=== PATIENT | male | born 2000 | race Caucasian/White ===

== ENCOUNTER 2023-12-04 12:04 | Emergency (ER) | payer SELFPAY ==
[2023-12-04 12:13] VITALS: BP 142/79; PULSE 64; TEMP 36.8; O2SAT 98; BMI 22.4
[2023-12-04] MEDS: BACITRACIN 0.9 GM PACKET 1 PACKET TOPICAL (12:33)
--- NOTE | 2023-12-04 13:22 | ED.GENADUL1 ---
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 The patient last tetanus booster was within the last 5 years Related Data Previous Rx's ?Medication ?Instructions ?Recorded cephalexin 500 mg capsule 500 mg PO Q8H 7 days #21 caps 12/04/23 Allergies Allergy/AdvReac Type Severity Reaction Status Date / Time No Known Drug Allergies Allergy Verified 12/04/23 12:13 Opioid HPI Opioid Management Most Recent Opioid Data: No Data to Display Review of Systems ROS Status of ROS 10 or more systems reviewed and unremarkable except as noted in history and below Exam Narrative Exam Narrative: Nurses notes and vital signs reviewed and patient is not hypoxic. Left hand: The patient have a laceration to the lateral aspect of the index finger not exposing any underlying structures only through the skin, the laceration is really the healing nonbleeding General: Well-appearing and in no apparent distress. Skin: Warm, dry, no pallor noted. No rash. Head: Normocephalic, atraumatic. Neck: Supple, non-tender. Eye: Pupils are equal, round and EOMI. No scleral icterus. Ears, Nose, Mouth, and Throat: TM are clear, no nasal mucosal hypertrophy. Oral mucosa is moist, no posterior oropharynx erythema, uvula is mid-line Cardiovascular: Regular Rate and Rhythm without murmur, gallop or rub. Respiratory: No accessory muscle use or respiratory distress. Lungs are clear to auscultation, no wheezing, rales or rhonchi Chest Wall: no tenderness Back: No midline thoracic or lumbar vertebral tenderness. No CVA tenderness Musculoskeletal: normal ROM, no calf or popliteal tenderness, no lower extremity edema/swelling GI: Abdomen is soft, non-distended. Normal bowel sounds. No masses appreciated. No tenderness to palpation. No rebound, guarding, or rigidity noted. Neurological: A&O x4. No cranial nerve dysfunction observed. No truncal ataxia. Moves all extremities. Sensation intact. Psychiatric: Cooperative and interactive. Normal mood and affect. Constitutional Vital Signs, click to edit/add: Last Vital Signs Temp 98.2 F 12/04/23 12:13 Pulse 64 12/04/23 12:13 Resp 18 12/04/23 12:13 BP 142/79 H 12/04/23 12:13 Pulse Ox 98 12/04/23 12:13 O2 Del Method Room Air 12/04/23 12:13 Course Vital Signs Vital signs: Vital Signs Temperature 98.2 F 12/04/23 12:13 Pulse Rate 64 12/04/23 12:13 Respiratory Rate 18 12/04/23 12:13 Blood Pressure 142/79 H 12/04/23 12:13 Pulse Oximetry 98 12/04/23 12:13 Oxygen Delivery Method Room Air 12/04/23 12:13 Temperature 98.2 F 12/04/23 12:13 Pulse Rate 64 12/04/23 12:13 Respiratory Rate 18 12/04/23 12:13 Blood Pressure 142/79 H 12/04/23 12:13 Pulse Oximetry 98 12/04/23 12:13 Oxygen Delivery Method Room Air 12/04/23 12:13 Medical Decision Making [facility] Narrative Medical decision making narrative: Now the patient wound is healing and it is not deep to to uncover any tendon and the patient have full range of movement He was instructed about keeping the wound clean and he will provided Keflex as prophylaxis care The patient is to follow up with primary care physician in next 2-3 days or to return to the emergency department should any of the signs or symptoms worsen or new symptoms develop. The patient agrees with the following Diagnosis and Treatment plan and the patient will be discharged home. Discharge Plan Discharge Stand Alone Forms: Work/School Release, Portal Instructions Chief Complaint: Wound/Laceration Clinical Impression: Laceration Patient Disposition: Home, Self-Care Time of Disposition Decision: 12:25 Condition: Good Prescriptions / Home Meds: New cephalexin 500 mg capsule 500 mg PO Q8H 7 Days Qty: 21 0RF Print Language: [place] Island[place] Instructions: Acute Wounds (DC) Referrals: TOI MACHADO [Primary Care Provider] - 1 week Discharge Date/Time: 12/04/23 12:37
== END 2023-12-04 12:37 | disposition home or self-care (01) ==
PROVIDERS: Emergency Provider Emergency Medicine; PCP Family Medicine
DX: S61.211A Laceration without foreign body of left index finger without damage to nail, initial encounter (principal); W26.8XXA Contact with other sharp object(s), not elsewhere classified, initial encounter
CPT/HCPCS: 99283

== ENCOUNTER 2023-12-28 17:19 | Emergency (ER) | payer SELFPAY ==
[2023-12-28 17:22] VITALS: BP 137/80; PULSE 62; TEMP 36.9; O2SAT 99; BMI 24.2
--- OUTSIDE RECORDS SUMMARY | 2023-12-28 17:27 | XMS_ITS | CCD ---
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 Name Role Phone DR TOI MACHADO Primary Care Unavailable PRANEETH DAVIS Admitting Unavailable PRANEETH DAVIS Attending Unavailable PRANEETH DAVIS Consulting Unavailable [place], [facility] Janell E Emergency Provider NO FAMILY, PHYSICIAN Primary Care Provider Unava ilable Saffle, [employer] Tati N Emergency Provider [place], [facility] Janell E Emergency Provider NO FAMILY, PHYSICIAN Primary Care Provider Unava ilable Saffle, [employer] Tati N Emergency Provider DO Howie Rodriguez Emergency Provider Unavai lable [place], Janell E Admitting Unavailable [place], Janell E Attending Unavailable NO FAMILY, PHYSICIAN Primary Care Unavailable Saffle, Tati N Admitting Unavailable Saffle, Tati N Attending Unavailable NO FAMILY, PHYSICIAN Primary Care Unavailable Howie Rodriguez Admitting Unavailable Howie Rodriguez Attending Unavailable NO FAMILY, PHYSICIAN Primary Care Unavailable NO FAMILY, PHYSICIAN Primary Care Unavailable Howie Rodriguez Admitting Unavailable Howie Rodriguez Attending Unavailable Subhash Mojica Attending Unavailable Subhash Mojica Admitting Unavailable NO FAMILY, PHYSICIAN Primary Care Unavailable Medications Current Medications Medication Drug Class(es) Dates Sig (Normalized) Sig (Original) ondansetron 4 mg oral tablet (1 source) Serotonin-3 Receptor Antagonist Start: 07-08-2022 take 4 mg by mouth every eight hours Ondansetron Hcl Active 4 MG PO Q8H 12 July 08, 2022 12:00am sucralfate 1000 mg oral tablet (1 source) Aluminum Complex Start: 07-08-2022 take 1 tablet by mouth twice daily Sucralfate (Carafate) 1 gram tablet Active 1 GM PO Twice daily 14 July 08, 2022 9:27am Problems Problem Classification Problem Date Documented Da te Episodic/Chronic Abdominal pain (2 sources) Abdominal pain; Translations: [Unspecified abdominal pain] Onset: 08-23-2022 07-08-2022 Episodic Fluid and electrolyte disorders (1 source) Dehydration; Translations: [DEHYDRATION] Onset: 06-21-2021 Episodic Nausea and vomiting (6 sources) Nausea with vomiting, unspecified; Translations: [Nausea and vomiting] Onset: 06-17-2021 Episodic Open wounds of head; neck; and trunk (3 sources) Scalp laceration; Translations: [Laceration without foreign body of scalp, initial encounter] 04-20-2022 Episodic Other aftercare (2 sources) Surgical follow-up; Translations: [Encounter for removal of sutures] 05-05-2022 Episodic Other gastrointestinal disorders (1 source) Diarrhea, unspecified; Translations: [DIARRHEA UNSPECIFIED] Onset: 06-21-2021 Episodic Other injuries and conditions due to external causes (3 sources) Closed injury of head; Translations: [Unspecified injury of head, initial encounter] 04-20-2022 Episodic Unclassified (1 source) Laceration without foreign body of scalp, subsequent encounter; Translations: [Laceration without foreign body of scalp, subsequent encounter] Onset: 05-05-2022 Unclassified (1 source) Laceration without foreign body of scalp, initial encounter; Translations: [Laceration without foreign body of scalp, initial encounter] Onset: 04-20-2022 Results Test Name Value Interpretation Reference Range Facility CT abdomen pelvis wo [facility] 0 08-25-2022 CT abdomen pelvis [facility] [place] [address] CT Scan Report Signed Patient: Marilyn Reddy MR#: [id number] 7 : 2000 Acct:[id number] Age/Sex: 22 / M ADM Date: 08/25/22 Loc: ER Room: Type: [facility] ER Attending Dr: Copies to: Subhash Mojiac MD Ordering Provider: Subhash Mojica MD Date of Service: 08/25/22 CT/CT abdomen pelvis wo con: abdominal pain CT abdomen pelvis wo con 08/25/2022 9:09 AM SIGNS AND SYMPTOMS: Abdominal pain and cramping TECHNIQUE: Multidetector ct axial images of the abdomen and pelvis were obtained without IV contrast. Multiplanar reformats were performed and reviewed to further define anatomy and possible pathology. CT was performed with one or more of the following dose reduction techniques: Automated exposure control, adjustment of the mA and/or kV according to patient size, or use of iterative reconstruction technique. COMPARISON: None. FINDINGS: Lower Chest: Within normal limits. ABDOMEN: Liver: Within normal limits. Bile Ducts: Normal caliber. Gallbladder: No calcified gallstones. Normal caliber wall. Pancreas: Within normal limits. Spleen: Within normal limits. Adrenals: Within normal limits. Kidneys: Within normal limits. Pelvis: Reproductive Organs: No pelvic masses. Ureters: Within normal limits. Bladder: Within normal limits. Bowel: Normal caliber. There is a normal appendix in the right lower quadrant. Mesenteric Lymph Nodes: No enlarged mesenteric lymph nodes. Peritoneum: No ascites or free air, no fluid collection. Vessels: within normal limits Retroperitoneum: Within normal limits. Abdominal Wall: Within normal limits. Bones: Within normal limits. CT/CT abdomen pelvis wo con IMPRESSION: No acute intra-abdominal pathology. No bowel obstruction or or obstructive uropathy. No free fluid or free air. Impression dictated by: Piyush Hopper M.D.08/25/2022 10:10 AM Dictation Location: [place] [address] Transcribed By: [facility] 08/25/22 1010 Dictated By: Piyush Hopper II, MD 08/25/22 1004 Signed By: 08/25/22 1010 Normal [facility] Complete Blood Count Auto Di ffon 08-25-2022 Basophils (Bld) [#/Vol] 0.0 10*3/uL Normal 0.0-0.2 [facility] Comment on above: Result Comment: PERF ORMED BY: [address] [place] [address] PATHOLOGIST GUEST SERVICES DIRECTOR MARYANN CORTEZ M.D. Performed By: #### L IPASE, CMP, CBC #### [address] [place] [address] [place] Basophils/100 WBC (Bld) 0.4 % Normal . F [facility] Comment on above: Performed By: #### L IPASE, CMP, CBC #### [facility] [address] Eosinophils (Bld) [#/Vol] 0.0 10*3/uL Normal 0.0-0.45 [facility] Comment on above: Performed By: #### L IPASE, CMP, CBC #### [facility] [address] [place] [address] [place] Eosinophils/100 WBC (Bld) 0.4 % Normal . [facility] Comment on above: Performed By: #### L IPASE, CMP, CBC #### [address] Erythrocyte distribution width (RBC) [Ratio] 13.5 % Normal 12.0-14.8 [facility] Comment on above: Performed By: #### L IPASE, CMP, CBC #### [address] Hematocrit (Bld) [Volume fraction] 42.7 % Normal 38.8-50.0 [facility] Comment on above: Performed By: #### L IPASE, CMP, CBC #### [place] [id number] [place] Hemoglobin (Bld) [Mass/Vol] 15.0 g/dL Normal 13.0-17.0 [facility] Comment on above: Performed By: #### L IPASE, CMP, CBC #### [place] [id number] [place] Lymphocytes (Bld) [#/Vol] 0.9 10*3/uL Low 1.00-4.8 [facility] Comment on above: Performed By: #### L IPASE, CMP, CBC #### [place] [id number] [place] Lymphocytes/100 WBC (Bld) 12.4 % Normal . [facility] Comment on above: Performed By: #### L IPASE, CMP, CBC #### [facility] [address] MCH (RBC) [Entitic mass] 29.7 pg Normal 27.5-35.2 [facility] Comment on above: Performed By: #### L IPASE, CMP, CBC #### [facility] [address] MCV (RBC) [Entitic vol] 84.3 fL Normal 83.5-101 F [facility] Comment on above: Performed By: #### L IPASE, CMP, CBC #### [address] Mean Corpuscular HGB Conc 35.2 g/dL Normal 32.5-35.6 [facility] Comment on above: Performed By: #### L IPASE, CMP, CBC #### [address] Monocytes (Bld) [#/Vol] 0.4 10*3/uL Normal 0.0-0.8 [facility] Comment on above: Performed By: #### L IPASE, CMP, CBC #### [place] [id number] [place] Monocytes/100 WBC (Bld) 16.20 % Normal 0.00-20.00 [facility] Comment on above: Performed By: #### L IPASE, CMP, CBC #### [place] [id number] [place] Monocytes/100 WBC (Bld) 4.7 % Normal . [facility] Comment on above: Performed By: #### L IPASE, CMP, CBC #### [facility] [address] [place] [address] [place] Neutrophils (Bld) [#/Vol] 6.2 10*3/uL Normal 1.8-7.7 [facility] Comment on above: Performed By: #### L IPASE, CMP, CBC #### [facility] [address] [place] [address] [place] Neutrophils/100 WBC (Bld) 82.1 % Normal . [facility] Comment on above: Performed By: #### L IPASE, CMP, CBC #### [address] NRBC% 0.1 /100{WBC} Normal 0-0.5 [facility] Comment on above: Performed By: #### L IPASE, CMP, CBC #### [address] Platelet mean volume (Bld) [Entitic vol] 8.0 fL Normal 6.6-10.1 [facility] Comment on above: Performed By: #### L IPASE, CMP, CBC #### [address] Platelets (Bld) [#/Vol] 232 10*3/uL Normal 150-450 [facility] Comment on above: Performed By: #### L IPASE, CMP, CBC #### [address] RBC (Bld) [#/Vol] 5.06 10*6/uL Normal 3.90-5.60 [facility] Comment on above: Performed By: #### L IPASE, CMP, CBC #### [address] WBC (Bld) [#/Vol] 7.5 10*3/uL Normal 4.1-10.5 [facility] Comment on above: Performed By: #### L IPASE, CMP, CBC #### [address] Comprehensive Metabolic Pane prem 08-25-2022 Albumin [Mass/Vol] 4.4 g/dL Normal 3.5-5.7 [facility] Comment on above: Performed By: #### L IPASE, CMP, CBC #### [address] Albumin/Globulin [Mass ratio] 1.5 {ratio} Normal [facility] Comment on above: Performed By: #### L IPASE, CMP, CBC #### [address] [place] [address] [place] ALP [Catalytic activity/Vol] 76 U/L Normal 34-104 [facility] Comment on above: Performed By: #### L IPASE, CMP, CBC #### [facility] [address] ALT [Catalytic activity/Vol] 17 U/L Normal 7-52 [facility] Comment on above: Performed By: #### L IPASE, CMP, CBC #### [facility] [address] Anion gap [Moles/Vol] 10.1 mmol/L Normal 6.0-15.0 [facility] Comment on above: Performed By: #### L IPASE, CMP, CBC #### [address] AST [Catalytic activity/Vol] 14 U/L Normal 13-39 [facility] Comment on above: Performed By: #### L IPASE, CMP, CBC #### [address] Bilirubin [Mass/Vol] 0.7 mg/dL Normal 0.3-1.0 [facility] Comment on above: Performed By: #### L IPASE, CMP, CBC #### [address] Calcium [Mass/Vol] 9.1 mg/dL Normal 8.6-10.3 [facility] Comment on above: Performed By: #### L IPASE, CMP, CBC #### [place] [id number] [place] Chloride [Moles/Vol] 102 mmol/L Normal 98-107 [facility] Comment on above: Performed By: #### L IPASE, CMP, CBC #### [facility] [address] CO2 [Moles/Vol] 28.1 mmol/L Normal 21.0-31.0 [facility] Comment on above: Performed By: #### L IPASE, CMP, CBC #### [facility] [address] Creatinine [Mass/Vol] 0.95 mg/dL Normal 0.70-1.30 [facility] Comment on above: Performed By: #### L IPANINFA SPANN, CBC #### [facility] [address] [place] [address] [place] Creatinine Clr Calc Pharmacy 129.09 [facility] Comment on above: Performed By: #### L IPASE, CMP, CBC #### [facility] [address] GFR/1.73 sq M.predicted MDRD (S/P/Bld) [Vol rate/Area] mL/min/{1.73_m2} [facility] Comment on above: Performed By: #### L IPASE CMP, CBC #### [facility] [address] Globulin (S) [Mass/Vol] 2.9 g/dL Normal [facility] Comment on above: Performed By: #### L IPASE, CMP, CBC #### [facility] [address] Glucose [Mass/Vol] 104 mg/dL High 70-100 [facility] Comment on above: Result Comment: [facility] Glucose Reference Range is dependent on time and content of last meal. Glucose of more than 200 mg/dL in a nonstressed, ambulatory subject supports the diagnosis of Diabetes Mellitus. ADA recommended reference range Performed By: #### L IPASE, CMP, CBC #### [facility] [address] Potassium [Moles/Vol] 4.2 mmol/L Normal 3.5-5.1 [facility] Comment on above: Performed By: #### L IPASE, CMP, CBC #### [facility] [address] Protein [Mass/Vol] 7.3 g/dL Normal 6.4-8.9 [facility] Comment on above: Performed By: #### L IPASE, CMP, CBC #### [facility] [address] [place] [address] Sodium [Moles/Vol] 136 mmol/L Normal 136-145 [facility] Comment on above: Performed By: #### L IPASE, CMP, CBC #### [address] Urea nitrogen [Mass/Vol] 21 mg/dL Normal 7-25 [facility] Comment on above: Performed By: #### L IPASE, CMP, CBC #### [address] Dipstick and Microscopicon 0 08-25-2022 Appearance (U) Turbid Critically abnormal Clear [facility] Comment on above: Order Comment: Name Collection Type:: Clean-Voided Midstream Performed By: #### H EPATIC, CBC, BMP, LIPASE #### [address] Bacteria,Urine None Seen Normal None Seen [facility] Comment on above: Order Comment: Name Collection Type:: Clean-Voided Midstream Performed By: #### H EPATIC, CBC, BMP, LIPASE #### [address] Bilirubin,Urine Negative Normal Negative [facility] Comment on above: Order Comment: Name Collection Type:: Clean-Voided Midstream Performed By: #### H EPATIC, CBC, BMP, LIPASE #### [address] Color (U) Yellow Normal Yellow [facility] Comment on above: Order Comment: Name Collection Type:: Clean-Voided Midstream Performed By: #### H EPATIC, CBC, BMP, LIPASE #### [facility] [address] [place] [address] Glucose Ql (U) Normal Normal Normal [facility] Comment on above: Order Comment: Name Collection Type:: Clean-Voided Midstream Performed By: #### H EPATIC, CBC, BMP, LIPASE #### [address] Hyaline Casts,Urine 0-8 Normal 0-8 [facility] Comment on above: Order Comment: Name Collection Type:: Clean-Voided Midstream Result Comment: PERF ORMED BY: [place] [address] PATHOLOGIST GUEST SERVICES DIRECTOR MARYANN CORTEZ M.D. Performed By: #### H EPATIC, CBC, BMP, LIPASE #### [address] Ketones Ql (U) Negative Normal Negative [facility] Comment on above: Order Comment: Name Collection Type:: Clean-Voided Midstream Performed By: #### H EPATIC, CBC, BMP, LIPASE #### [address] Leukocyte esterase Test strip Ql (U) Negative Normal Negative [facility] Comment on above: Order Comment: Name Collection Type:: Clean-Voided Midstream Performed By: #### H EPATIC, CBC, BMP, LIPASE #### [address] Nitrite,Urine Negative Normal Negative [facility] Comment on above: Order Comment: Name Collection Type:: Clean-Voided Midstream Performed By: #### H EPATIC, CBC, BMP, LIPASE #### [address] Occult Blood,Urine Negative Normal Negative [facility] Comment on above: Order Comment: Name Collection Type:: Clean-Voided Midstream Result Comment: PERF ORMED BY: [place] [address] PATHOLOGIST GUEST SERVICES DIRECTOR MARYANN CORTEZ M.D. Performed By: #### H EPATIC, CBC, BMP, LIPASE #### [address] pH (U) 7.0 [pH] Normal 5.0-9.0 [facility] Comment on above: Order Comment: Name Collection Type:: Clean-Voided Midstream Performed By: #### H EPATIC, CBC, BMP, LIPASE #### [address] Protein,Urine Negative Normal Negative [facility] Comment on above: Order Comment: Name Collection Type:: Clean-Voided Midstream Performed By: #### H EPATIC, CBC, BMP, LIPASE #### [address] RBC LM.HPF (Urine sed) [#/Area] 0 /[HPF] Normal 0-4 [facility] Comment on above: Order Comment: Name Collection Type:: Clean-Voided Midstream Performed By: #### H EPATIC, CBC, BMP, LIPASE #### [address] Specificy [place],Urine 1.025 Normal 1.001-1.030 [facility] Comment on above: Order Comment: Name Collection Type:: Clean-Voided Midstream Performed By: #### H EPATIC, CBC, BMP, LIPASE #### [address] Squamous Epithelial Cell,Urine None Seen Normal 0-2 [facility] Comment on above: Order Comment: Name Collection Type:: Clean-Voided Midstream Performed By: #### H EPATIC, CBC, BMP, LIPASE #### [address] Urobilinogen,Urine Normal Normal Normal [facility] Comment on above: Order Comment: Name Collection Type:: Clean-Voided Midstream Performed By: #### H EPATIC, CBC, BMP, LIPASE #### [address] WBC LM.HPF (Urine sed) [#/Area] 0 /[HPF] Normal 0-4 [facility] Comment on above: Order Comment: Name Collection Type:: Clean-Voided Midstream Performed By: #### H EPATIC, CBC, BMP, LIPASE #### [address] Lipaseon 08-25-2022 Lipase [Catalytic activity/Vol] 14.0 U/L Normal 11.0-82.0 [facility] Comment on above: Result Comment: PERF ORMED BY: [address] [place] [address] PATHOLOGIST GUEST SERVICES DIRECTOR MARYANN CORTEZ M.D. Performed By: #### H EPATIC, CBC, BMP, LIPASE #### [address] Basic Metabolic Panelon 05-2 Anion gap [Moles/Vol] 11.2 mmol/L Normal 6.0-15.0 [facility] Comment on above: Performed By: #### H EPATIC, CBC, BMP, LIPASE #### [address] Calcium [Mass/Vol] 8.7 mg/dL Normal 8.6-10.3 [facility] Comment on above: Performed By: #### H EPATIC, CBC, BMP, LIPASE #### [address] Chloride [Moles/Vol] 102 mmol/L Normal 98-107 [facility] Comment on above: Performed By: #### H EPATIC, CBC, BMP, LIPASE #### [address] CO2 [Moles/Vol] 25.6 mmol/L Normal 21.0-31.0 [facility] Comment on above: Performed By: #### H EPATIC, CBC, BMP, LIPASE #### [address] Creatinine [Mass/Vol] 0.81 mg/dL Normal 0.70-1.30 [facility] Comment on above: Performed By: #### H EPATIC, CBC, BMP, LIPASE #### [facility] [address] [place] [address] Creatinine Clr Calc Pharmacy 153.85 [facility] Comment on above: Performed By: #### H EPATIC, CBC, BMP, LIPASE #### [place] [id number] [place] GFR/1.73 sq M.predicted MDRD (S/P/Bld) [Vol rate/Area] mL/min/{1.73_m2} [facility] Comment on above: Performed By: #### H EPATIC, CBC, BMP, LIPASE #### [facility] [address] Glucose [Mass/Vol] 99 mg/dL Normal 70-100 [facility] Comment on above: Result Comment: [facility] Glucose Reference Range is dependent on time and content of last meal. Glucose of more than 200 mg/dL in a nonstressed, ambulatory subject supports the diagnosis of Diabetes Mellitus. ADA recommended reference range Performed By: #### H EPATIC, CBC, BMP, LIPASE #### [facility] [address] Potassium [Moles/Vol] 3.8 mmol/L Normal 3.5-5.1 [facility] Comment on above: Performed By: #### H EPATIC, CBC, BMP, LIPASE #### [address] Sodium [Moles/Vol] 135 mmol/L Low 136-145 [facility] Comment on above: Performed By: #### H EPATIC, CBC, BMP, LIPASE #### [address] Urea nitrogen [Mass/Vol] 27 mg/dL High 7-25 [facility] Comment on above: Performed By: #### H EPATIC, CBC, BMP, LIPASE #### [address] Complete Blood Count Auto Di ffon 08-23-2022 Basophils (Bld) [#/Vol] 0.1 10*3/uL Normal 0.0-0.2 [facility] Comment on above: Result Comment: PERF ORMED BY: [place] [address] PATHOLOGIST GUEST SERVICES DIRECTOR MARYANN CORTEZ M.D. Performed By: #### H EPATIC, CBC, BMP, LIPASE #### [address] Basophils/100 WBC (Bld) 0.7 % Normal . F [facility] Comment on above: Performed By: #### H EPATIC, CBC, BMP, LIPASE #### [address] Eosinophils (Bld) [#/Vol] 0.1 10*3/uL Normal 0.0-0.45 [facility] Comment on above: Performed By: #### H EPATIC, CBC, BMP, LIPASE #### [address] Eosinophils/100 WBC (Bld) 1.4 % Normal . [facility] Comment on above: Performed By: #### H EPATIC, CBC, BMP, LIPASE #### [address] Erythrocyte distribution width (RBC) [Ratio] 13.3 % Normal 12.0-14.8 [facility] Comment on above: Performed By: #### H EPATIC, CBC, BMP, LIPASE #### [address] Hematocrit (Bld) [Volume fraction] 42.6 % Normal 38.8-50.0 [facility] Comment on above: Performed By: #### H EPATIC, CBC, BMP, LIPASE #### [address] Hemoglobin (Bld) [Mass/Vol] 14.9 g/dL Normal 13.0-17.0 [facility] Comment on above: Performed By: #### H EPATIC, CBC, BMP, LIPASE #### [address] Lymphocytes (Bld) [#/Vol] 2.1 10*3/uL Normal 1.00-4.8 [facility] Comment on above: Performed By: #### H EPATIC, CBC, BMP, LIPASE #### [address] Lymphocytes/100 WBC (Bld) 26.5 % Normal . [facility] Comment on above: Performed By: #### H EPATIC, CBC, BMP, LIPASE #### [address] MCH (RBC) [Entitic mass] 29.6 pg Normal 27.5-35.2 [facility] Comment on above: Performed By: #### H EPATIC, CBC, BMP, LIPASE #### [address] MCV (RBC) [Entitic vol] 84.5 fL Normal 83.5-101 F [facility] Comment on above: Performed By: #### H EPATIC, CBC, BMP, LIPASE #### [address] Mean Corpuscular HGB Conc 35.1 g/dL Normal 32.5-35.6 [facility] Comment on above: Performed By: #### H EPATIC, CBC, BMP, LIPASE #### [address] Monocytes (Bld) [#/Vol] 0.7 10*3/uL Normal 0.0-0.8 [facility] Comment on above: Performed By: #### H EPATIC, CBC, BMP, LIPASE #### [address] Monocytes/100 WBC (Bld) 16.32 % Normal 0.00-20.00 [facility] Comment on above: Performed By: #### H EPATIC, CBC, BMP, LIPASE #### [address] Monocytes/100 WBC (Bld) 8.5 % Normal . [facility] Comment on above: Performed By: #### H EPATIC, CBC, BMP, LIPASE #### [address] Neutrophils (Bld) [#/Vol] 5.1 10*3/uL Normal 1.8-7.7 [facility] Comment on above: Performed By: #### H EPATIC, CBC, BMP, LIPASE #### [address] Neutrophils/100 WBC (Bld) 62.9 % Normal . [facility] Comment on above: Performed By: #### H EPATIC, CBC, BMP, LIPASE #### [address] NRBC% 0.2 /100{WBC} Normal 0-0.5 [facility] Comment on above: Performed By: #### H EPATIC, CBC, BMP, LIPASE #### [address] Platelet mean volume (Bld) [Entitic vol] 7.9 fL Normal 6.6-10.1 [facility] Comment on above: Performed By: #### H EPATIC, CBC, BMP, LIPASE #### [address] Platelets (Bld) [#/Vol] 235 10*3/uL Normal 150-450 [facility] Comment on above: Performed By: #### H EPATIC, CBC, BMP, LIPASE #### [address] RBC (Bld) [#/Vol] 5.04 10*6/uL Normal 3.90-5.60 [facility] Comment on above: Performed By: #### H EPATIC, CBC, BMP, LIPASE #### [address] WBC (Bld) [#/Vol] 8.1 10*3/uL Normal 4.1-10.5 [facility] Comment on above: Performed By: #### H EPATIC, CBC, BMP, LIPASE #### [address] Dipstick and Microscopicon 0 08-23-2022 Appearance (U) Cloudy Critically abnormal Clear [facility] Comment on above: Order Comment: Name Collection Type:: Clean-Voided Midstream Performed By: #### A DDONUAPLUS #### [address] Bacteria,Urine None Seen Normal None Seen [facility] Comment on above: Order Comment: Name Collection Type:: Clean-Voided Midstream Performed By: #### A DDONUAPLUS #### [facility] [address] [place] [address] [place] Bilirubin,Urine Negative Normal Negative [facility] Comment on above: Order Comment: Name Collection Type:: Clean-Voided Midstream Performed By: #### A DDONUAPLUS #### [facility] [address] [place] [address] Color (U) Yellow Normal Yellow [facility] Comment on above: Order Comment: Name Collection Type:: Clean-Voided Midstream Performed By: #### A DDONUAPLUS #### [facility] [address] [place] [address] [place] Glucose Ql (U) Normal Normal Normal [facility] Comment on above: Order Comment: Name Collection Type:: Clean-Voided Midstream Performed By: #### A DDONUAPLUS #### [facility] [address] [place] [address] [place] Hyaline Casts,Urine None Seen Normal 0-8 [facility] Comment on above: Order Comment: Name Collection Type:: Clean-Voided Midstream Result Comment: PERF ORMED BY: [place] [address] PATHOLOGIST GUEST SERVICES DIRECTOR MARYANN CORTEZ M.D. Performed By: #### A DDONUAPLUS #### [facility] [address] [place] [address] [place] Ketones Ql (U) Negative Normal Negative [facility] Comment on above: Order Comment: Name Collection Type:: Clean-Voided Midstream Performed By: #### A DDONUAPLUS #### [facility] [address] [place] [address] [place] Leukocyte esterase Test strip Ql (U) Negative Normal Negative [facility] Comment on above: Order Comment: Name Collection Type:: Clean-Voided Midstream Performed By: #### A DDONUAPLUS #### [facility] [address] [place] [address] [place] Nitrite,Urine Negative Normal Negative [facility] Comment on above: Order Comment: Name Collection Type:: Clean-Voided Midstream Performed By: #### A DDONUAPLUS #### [address] Occult Blood,Urine Negative Normal Negative [facility] Comment on above: Order Comment: Name Collection Type:: Clean-Voided Midstream Result Comment: PERF ORMED BY: [place] [address] PATHOLOGIST GUEST SERVICES DIRECTOR MARYANN CORTEZ M.D. Performed By: #### A DDONUAPLUS #### [address] pH (U) 7.0 [pH] Normal 5.0-9.0 [facility] Comment on above: Order Comment: Name Collection Type:: Clean-Voided Midstream Performed By: #### A DDONUAPLUS #### [address] Protein,Urine Negative Normal Negative [facility] Comment on above: Order Comment: Name Collection Type:: Clean-Voided Midstream Performed By: #### A DDONUAPLUS #### [address] RBC LM.HPF (Urine sed) [#/Area] 0 /[HPF] Normal 0-4 [facility] Comment on above: Order Comment: Name Collection Type:: Clean-Voided Midstream Performed By: #### A DDONUAPLUS #### [address] Specificy [place],Urine 1.022 Normal 1.001-1.030 [facility] Comment on above: Order Comment: Name Collection Type:: Clean-Voided Midstream Performed By: #### A DDONUAPLUS #### [address] Squamous Epithelial Cell,Urine None Seen Normal 0-2 [facility] Comment on above: Order Comment: Name Collection Type:: Clean-Voided Midstream Performed By: #### A DDONUAPLUS #### [address] Urobilinogen,Urine Normal Normal Normal [facility] Comment on above: Order Comment: Name Collection Type:: Clean-Voided Midstream Performed By: #### A DDONUAPLUS #### [address] WBC LM.HPF (Urine sed) [#/Area] 0 /[HPF] Normal 0-4 [facility] Comment on above: Order Comment: Name Collection Type:: Clean-Voided Midstream Performed By: #### A DDONUAPLUS #### [address] Hepatic Panelon 08-23-2022 Albumin [Mass/Vol] 4.2 g/dL Normal 3.5-5.7 [facility] Comment on above: Performed By: #### H EPATIC, CBC, BMP, LIPASE #### [address] Albumin/Globulin [Mass ratio] 1.4 {ratio} Normal [facility] Comment on above: Performed By: #### H EPATIC, CBC, BMP, LIPASE #### [address] ALP [Catalytic activity/Vol] 84 U/L Normal 34-104 [facility] Comment on above: Performed By: #### H EPATIC, CBC, BMP, LIPASE #### [address] ALT [Catalytic activity/Vol] 18 U/L Normal 7-52 [facility] Comment on above: Performed By: #### H EPATIC, CBC, BMP, LIPASE #### [address] AST [Catalytic activity/Vol] 17 U/L Normal 13-39 [facility] Comment on above: Performed By: #### H EPATIC, CBC, BMP, LIPASE #### [address] Bilirubin [Mass/Vol] 0.7 mg/dL Normal 0.3-1.0 [facility] Comment on above: Performed By: #### H EPATIC, CBC, BMP, LIPASE #### [address] [place] [address] [place] Bilirubin,Indirect 0.6 mg/dL Normal [facility] Comment on above: Performed By: #### H EPATIC, CBC, BMP, LIPASE #### [facility] [address] Bilirubin.indirect [Mass/Vol] 0.10 mg/dL Normal 0.03-0.18 [facility] Comment on above: Performed By: #### H EPATIC, CBC, BMP, LIPASE #### [facility] [address] Globulin (S) [Mass/Vol] 2.9 g/dL Normal [facility] Comment on above: Performed By: #### H EPATIC, CBC, BMP, LIPASE #### [address] Protein [Mass/Vol] 7.1 g/dL Normal 6.4-8.9 [facility] Comment on above: Performed By: #### H EPATIC, CBC, BMP, LIPASE #### [address] Lipaseon 08-23-2022 Lipase [Catalytic activity/Vol] 10.0 U/L Low 11.0-82.0 [facility] Comment on above: Result Comment: PERF ORMED BY: [place] [address] PATHOLOGIST GUEST SERVICES DIRECTOR MARYANN CORTEZ M.D. Performed By: #### H EPATIC, CBC, BMP, LIPASE #### [address] Basic Metabolic Panelon 04-0 Anion gap [Moles/Vol] 9.0 mmol/L Normal 6.0-15.0 [facility] Comment on above: Performed By: #### H EPATIC, CBC, BMP, LIPASE #### [address] Calcium [Mass/Vol] 9.1 mg/dL Normal 8.6-10.3 [facility] Comment on above: Performed By: #### H EPATIC, CBC, BMP, LIPASE #### [facility] [address] [place] [address] [place] Chloride [Moles/Vol] 106 mmol/L Normal 98-107 [facility] Comment on above: Performed By: #### H EPATIC, CBC, BMP, LIPASE #### [facility] [address] CO2 [Moles/Vol] 25.7 mmol/L Normal 21.0-31.0 [facility] Comment on above: Performed By: #### H EPATIC, CBC, BMP, LIPASE #### [facility] [address] Creatinine [Mass/Vol] 0.81 mg/dL Normal 0.70-1.30 [facility] Comment on above: Performed By: #### H EPATIC, CBC, BMP, LIPASE #### [facility] [address] Creatinine Clr Calc Pharmacy 146.09 [facility] Comment on above: Result Comment: PERF ORMED BY: [place] [address] PATHOLOGIST GUEST SERVICES DIRECTOR MARYANN CORTEZ M.D. Performed By: #### H EPATIC, CBC, BMP, LIPASE #### [facility] [address] GFR/1.73 sq M.predicted MDRD (S/P/Bld) [Vol rate/Area] mL/min/{1.73_m2} [facility] Comment on above: Performed By: #### H EPATIC, CBC, BMP, LIPASE #### [facility] [address] Glucose [Mass/Vol] 109 mg/dL High 70-100 [facility] Comment on above: Result Comment: [place] Glucose Reference Range is dependent on time and content of last meal. Glucose of more than 200 mg/dL in a nonstressed, ambulatory subject supports the diagnosis of Diabetes Mellitus. ADA recommended reference range Performed By: #### H EPATIC, CBC, BMP, LIPASE #### [facility] [address] Potassium [Moles/Vol] 3.7 mmol/L Normal 3.5-5.1 [facility] Comment on above: Performed By: #### H EPATIC, CBC, BMP, LIPASE #### [facility] [address] Sodium [Moles/Vol] 137 mmol/L Normal 136-145 [facility] Comment on above: Performed By: #### H EPATIC, CBC, BMP, LIPASE #### [facility] [address] Urea nitrogen [Mass/Vol] 19 mg/dL Normal 7-25 [facility] Comment on above: Performed By: #### H EPATIC, CBC, BMP, LIPASE #### [facility] [address] Basophils Auto (Bld) [#/Vol] Ordered By: Howie Rodriguez on 07-08-2022 Basophils (Bld) [#/Vol] 0.0 10*3/uL 0.0-0.2 [facility] Basophils/100 WBC Auto (Bld) Ordered By: Howie Rodriguez on 07-08-2022 Basophils/100 WBC (Bld) 0.3 % . [facility] COVID-19 Antigenon 3 COVID-19 Antigen Healthcare Worker?: N Reference Range: Negative Negative results, from patients with symptom onset beyond five days, should be treated as presumptive and confirmation with a molecular assay, if necessary, for patient management, may be performed. Negative results do not rule out COVID-19 and should not be used as the sole basis for treatment or patient management decisions, including infection control decisions. Negative results should be considered in the context of a patient's recent exposures, history and the presence of clinical signs and symptoms consistent with COVID-19. The Jessica SARS Antigen KAREN does not differentiate between SARS-CoV and SARS-CoV-2. This test was developed and its performance characteristic determined by [facility] and validated at [facility]. This test has not been FDA cleared or approved. This test has been authorized by FDA under an Emergency Use Authorization (EUA). This test has been validated in accordance with the FDA's Guidance Document (Policy for Diagnostics Testing in Laboratories Certified to Perform High Complexity Testing under CLIA prior to Emergency Use Authorization for Coronavirus Disease-2019 during the Public Health Emergency) issued on July 04, 2019. This test is only authorized for the duration of time the declaration that circumstances exist justifying the authorization of the emergency use of in vitro diagnostic tests for detection of SARS-CoV-2 virus and/or diagnosis of COVID-19 infection under section 564(b)(1) of the Act, 21 U.S.C. 360bbb-3(b)(1), unless the authorization is terminated or revoked sooner. SARS-CoV+SARS-CoV-2 (COVID-19) Ag [Presence] in Respiratory specimen by Rapid immunoassay Negative for SARS Antigen by KAREN PERFORMED BY: [place] [address] PATHOLOGIST GUEST SERVICES DIRECTOR MARYANN CORTEZ M.D. [facility] Comment on above: Performed By: #### S OFIANEG, COVID-19 JESSICA #### [address] COVID-19 SOFIAOrdered By: Bolivar Rodriguez on 07-08-2022 SARS-CoV+SARS-CoV-2 (COVID-19) Ag IA.rapid Ql (Resp) Negative Negative [facility] Comment on above: This is a duplicate Jessica SARS Antigen (KAREN) result to be used for statistical tracking purpose only. Calcium [Mass/volume] in Ser um or PlasmaOrdered By: Howie Rodriguez on 07-08-2022 Calcium [Mass/Vol] 9.1 mg/dL 8.6-10.3 [facility] Carbon dioxide, total [Moles /volume] in Serum or PlasmaOrdered By: Howie Rodriguez on 07-08-2022 CO2 [Moles/Vol] 25.7 mmol/L 21.0-31.0 [facility] Chloride [Moles/volume] in S erica or PlasmaOrdered By: Howie Rodriguez on 07-08-2022 Chloride [Moles/Vol] 106 mmol/L 98-107 [facility] Complete Blood Count Auto Di ffon 07-08-2022 Basophils (Bld) [#/Vol] 0.0 10*3/uL Normal 0.0-0.2 [facility] Comment on above: Result Comment: PERF ORMED BY: [place] [address] PATHOLOGIST GUEST SERVICES DIRECTOR MARYANN CORTEZ M.D. Performed By: #### H EPATIC, CBC, BMP, LIPASE #### [facility] [address] [place] [address] Basophils/100 WBC (Bld) 0.3 % Normal . [facility] Comment on above: Performed By: #### H EPATIC, CBC, BMP, LIPASE #### [facility] [address] [place] [address] Eosinophils (Bld) [#/Vol] 0.1 10*3/uL Normal 0.0-0.45 [facility] Comment on above: Performed By: #### H EPATIC, CBC, BMP, LIPASE #### [facility] [address] [place] [address] Eosinophils/100 WBC (Bld) 2.2 % Normal . [facility] Comment on above: Performed By: #### H EPATIC, CBC, BMP, LIPASE #### [facility] [address] [place] [address] Erythrocyte distribution width (RBC) [Ratio] 13.4 % Normal 12.0-14.8 [facility] Comment on above: Performed By: #### H EPATIC, CBC, BMP, LIPASE #### [facility] [address] [place] [address] Hematocrit (Bld) [Volume fraction] 39.1 % Normal 38.8-50.0 [facility] Comment on above: Performed By: #### H EPATIC, CBC, BMP, LIPASE #### [facility] [address] [place] [address] Hemoglobin (Bld) [Mass/Vol] 13.8 g/dL Normal 13.0-17.0 [facility] Comment on above: Performed By: #### H EPATIC, CBC, BMP, LIPASE #### [address] Lymphocytes (Bld) [#/Vol] 1.1 10*3/uL Normal 1.00-4.8 [facility] Comment on above: Performed By: #### H EPATIC, CBC, BMP, LIPASE #### [address] Lymphocytes/100 WBC (Bld) 21.6 % Normal . [facility] Comment on above: Performed By: #### H EPATIC, CBC, BMP, LIPASE #### [address] MCH (RBC) [Entitic mass] 29.5 pg Normal 27.5-35.2 [facility] Comment on above: Performed By: #### H EPATIC, CBC, BMP, LIPASE #### [address] MCV (RBC) [Entitic vol] 83.5 fL Normal 83.5-101 [facility] Comment on above: Performed By: #### H EPATIC, CBC, BMP, LIPASE #### [address] Mean Corpuscular HGB Conc 35.4 g/dL Normal 32.5-35.6 [facility] Comment on above: Performed By: #### H EPATIC, CBC, BMP, LIPASE #### [address] Monocytes (Bld) [#/Vol] 0.7 10*3/uL Normal 0.0-0.8 [facility] Comment on above: Performed By: #### H EPATIC, CBC, BMP, LIPASE #### [address] Monocytes/100 WBC (Bld) 20.68 % High 0.00-20.00 [facility] Comment on above: Result Comment: For adults in ED, MDW > 20.0 may be associated with a higher risk of sepsis during the first 12 hrs of hospital admission Performed By: #### H EPATIC, CBC, BMP, LIPASE #### [address] Monocytes/100 WBC (Bld) 12.6 % Normal . [facility] Comment on above: Performed By: #### H EPATIC, CBC, BMP, LIPASE #### [address] Neutrophils (Bld) [#/Vol] 3.3 10*3/uL Normal 1.8-7.7 [facility] Comment on above: Performed By: #### H EPATIC, CBC, BMP, LIPASE #### [address] Neutrophils/100 WBC (Bld) 63.3 % Normal . [facility] Comment on above: Performed By: #### H EPATIC, CBC, BMP, LIPASE #### [address] NRBC% 0.1 /100{WBC} Normal 0-0.5 [facility] Comment on above: Performed By: #### H EPATIC, CBC, BMP, LIPASE #### [address] Platelet mean volume (Bld) [Entitic vol] 8.1 fL Normal 6.6-10.1 [facility] Comment on above: Performed By: #### H EPATIC, CBC, BMP, LIPASE #### [place] [id number] [place] Platelets (Bld) [#/Vol] 209 10*3/uL Normal 150-450 [facility] Comment on above: Performed By: #### H EPATIC, CBC, BMP, LIPASE #### [address] RBC (Bld) [#/Vol] 4.68 10*6/uL Normal 3.90-5.60 [facility] Comment on above: Performed By: #### H EPATIC, CBC, BMP, LIPASE #### [address] [place] [address] [place] WBC (Bld) [#/Vol] 5.3 10*3/uL Normal 4.1-10.5 [facility] Comment on above: Performed By: #### H EPATIC, CBC, BMP, LIPASE #### [facility] [address] Creatinine [Mass/volume] in Serum or PlasmaOrdered By: Howie Rodriguez on 07-08-2022 Creatinine [Mass/Vol] 0.81 mg/dL 0.70-1.30 [facility] Eosinophils Auto (Bld) [#/Vo l]Ordered By: Howie Rodriguez on 07-08-2022 Eosinophils (Bld) [#/Vol] 0.1 10*3/uL 0.0-0.45 [facility] Eosinophils/100 WBC Auto (Bl d)Ordered By: Howie Rodriguez on 07-08-2022 Eosinophils/100 WBC (Bld) 2.2 % . [facility] Erythrocyte distribution wid th Auto (RBC) [Ratio]Ordered By: Howie Rodriguez on 07-08-2022 Erythrocyte distribution width (RBC) [Ratio] 13.4 % 12.0-14.8 [facility] Glucose [Mass/volume] in Ser um or PlasmaOrdered By: Howie Rodriguez on 07-08-2022 Glucose [Mass/Vol] 109 mg/dL 70-100 [facility] Comment on above: ADA recommended refe rence rangeRandom Glucose Reference Range is dependent on time and content of last meal. Glucose of more than 200 mg/dL in a nonstressed, ambulatory subject supports the diagnosis of Diabetes Mellitus. Hematocrit Auto (Bld) [Volum e fraction]Ordered By: Howie Rodriguez on 07-08-2022 Hematocrit (Bld) [Volume fraction] 39.1 % 38.8-50.0 [facility] Hemoglobin [Mass/volume] in BloodOrdered By: Howie Rodriguze on 07-08-2022 Hemoglobin (Bld) [Mass/Vol] 13.8 g/dL 13.0-17.0 [facility] Leukocytes [#/volume] correc jolene for nucleated erythrocytes in Blood by Automated counOrdered By: Howie Rodriguez on 07-08-2022 WBC corrected for nucl RBC Auto (Bld) [#/Vol] 5.3 10*3/uL 4.1-10.5 [facility] Lymphocytes Auto (Bld) [#/Vo l]Ordered By: Howie Rodriguez on 07-08-2022 Lymphocytes (Bld) [#/Vol] 1.1 10*3/uL 1.00-4.8 [facility] Lymphocytes/100 WBC Auto (Bl d)Ordered By: Howie Rodriguez on 07-08-2022 Lymphocytes/100 WBC (Bld) 21.6 % . [facility] MCH Auto (RBC) [Entitic mass ]Ordered By: Howie Rodriguez on 07-08-2022 MCH (RBC) [Entitic mass] 29.5 pg 27.5-35.2 [facility] MCHC Auto (RBC) [Mass/Vol]Or dered By: Howie Rodriguez on 07-08-2022 MCHC (RBC) [Mass/Vol] 35.4 g/dL 32.5-35.6 [facility] MCV Auto (RBC) [Entitic vol] Ordered By: Howie Rodriguez on 07-08-2022 MCV (RBC) [Entitic vol] 83.5 fL 83.5-101 [facility] Monocyte distribution width [Entitic volume] in Blood by AutomatedOrdered By: Howie Rodriguez on 07-08-2022 Monocyte distribution width Auto (Bld) [Entitic vol] 20.68 % 0.00-20.00 [facility] Comment on above: For adults in ED, MD W > 20.0 may be associated with a higher risk of sepsis during the first 12 hrs of hospital admission Monocytes Auto (Bld) [#/Vol] Ordered By: Howie Rodriguez on 07-08-2022 Monocytes (Bld) [#/Vol] 0.7 10*3/uL 0.0-0.8 [facility] Monocytes/100 WBC Auto (Bld) Ordered By: Howie Rodriguez on 07-08-2022 Monocytes/100 WBC (Bld) 12.6 % . [facility] Neutrophils Auto (Bld) [#/Vo l]Ordered By: Howie Rodriguez on 07-08-2022 Neutrophils (Bld) [#/Vol] 3.3 10*3/uL 1.8-7.7 [facility] Neutrophils/100 WBC Auto (Bl d)Ordered By: Howie Rodriguez on 07-08-2022 Neutrophils/100 WBC (Bld) 63.3 % . [facility] No Panel InformationOrdered By: Howie Rodriguez on 07-08-2022 SARS Antigen (LFIA) [facility] Estimated GFR (CKD-EPI) > 60.0 mL/Min [facility] Creatinine Clearance (Chem 146.09 [facility] Nucleated erythrocytes [Pres ence] in Blood by Automated countOrdered By: Howie Rodriguez on 07-08-2022 Nucleated RBC Auto Ql (Bld) 0.1 /100{WBC} 0-0.5 [facility] Platelet mean volume Auto (B ld) [Entitic vol]Ordered By: Howie Rodriguez on 07-08-2022 Platelet mean volume (Bld) [Entitic vol] 8.1 fL 6.6-10.1 [facility] Platelets Auto (Bld) [#/Vol] Ordered By: Howie Rodriguez on 07-08-2022 Platelets (Bld) [#/Vol] 209 10*3/uL 150-450 [facility] Potassium [Moles/volume] in Serum or PlasmaOrdered By: Howie Rodriguez on 07-08-2022 Potassium [Moles/Vol] 3.7 mmol/L 3.5-5.1 [facility] RBC Auto (Bld) [#/Vol]Ordere d By: Howie Rodriguez on 07-08-2022 RBC (Bld) [#/Vol] 4.68 10*6/uL 3.90-5.60 [facility] Serum or plasma anion gap de terminationOrdered By: Howie Rodriguez on 07-08-2022 Anion gap [Moles/Vol] 9.0 mmol/L 6.0-15.0 [facility] Sodium [Moles/volume] in Ser um or PlasmaOrdered By: Howie Rodriguez on 07-08-2022 Sodium [Moles/Vol] 137 mmol/L 136-145 [facility] Jessica Ag Negativeon 07-09-19 23 Jessica Ag Negative Negative Normal Negative [facility] Comment on above: Result Comment: This is a duplicate Jessica SARS Antigen (KAREN) result to be used for statistical tracking purpose only. PERFORMED BY: [facility] [address] [place] [address] PATHOLOGIST GUEST SERVICES DIRECTOR MARYANN CORTEZ M.D. Performed By: #### S OFKEYA, COVID-19 JESSICA #### [facility] [address] Urea nitrogen [Mass/volume] in Serum or PlasmaOrdered By: Howie Rodriguez on 07-08-2022 Urea nitrogen [Mass/Vol] 19 mg/dL 7-25 [facility] WBC Auto (Bld) [#/Vol]Ordere d By: Howie Rodriguez on 07-08-2022 WBC (Bld) [#/Vol] 5.3 10*3/uL 4.1-10.5 [facility] Coding Summary.on 03-07-2019 Coding Summary. CODING DATE: 03/07/2019 [facility] STATUS: Home (Routine DC) PAYOR: [facility] DESCRIPTION 5521 Level 1 Imaging without Contrast ADMIT DX: REASON FOR VISIT DX: M25.572 Pain in left ankle and joints of left foot FINAL DX: PRINCIPAL: S93.402A Sprain of unspecified ligament of left ankle, initial encounter SECONDARY: V00.131A Fall from skateboard, initial encounter Y93.51 Activity, roller skating (inline) and skateboarding Y92.[address] of occurrence of the external cause PYMT PROC APC STAT DESCRIPTION DOCTOR NAME DATE NOTE: The code number assigned matches the documented diagnosis and / or procedure in the patient's chart. However, the narrative phrase printed from the coding software may appear abbreviated, or result in slightly different terminology. Coded By: Tammy Jewell Date Saved: 03/07/2019 12:52 pm Normal [facility] ED Clinical Summaryon 2018 ED Clinical Summary [place] [id number] ED Clinical Summary Person Information Name: MARILYN REDDY/Sona Age: 18 Years : 2000 12:00 AM Sex: Male Language: Ivorian PCP: TOI MACHADO MD Marital Status: Single Visit Id: Visit Reason: Ankle injury - Minor; LEFT ANKLE PAIN Speciality: Acuity: 4 Enc Type: Emergency Med Service: Emergency Arrival: 03/05/2019 1:31 PM Discharge: 03/05/2019 3:48 PM LOS: 000 02:17 Checkin: 03/05/2019 1:31 PM Checkout: 03/05/2019 3:48 PM Dispo Type: Home (Routine DC) EVENTS: Event Name Event Status Request Date/Time Start Date/Time Complete Date/Time Arrive Complete 03/05/2019 1:31 PM 03/05/2019 1:31 PM 03/05/2019 1:31 PM Document Home Meds Request 03/05/2019 1:31 PM Triage Complete 03/05/2019 1:31 PM 03/05/2019 2:16 PM 03/05/2019 2:16 PM X-Ray Complete 03/05/2019 2:17 PM 03/05/2019 2:27 PM 03/05/2019 2:38 PM Bed Assign Complete 03/05/2019 2:21 PM 03/05/2019 2:21 PM 03/05/2019 2:[address] Exam Complete 03/05/2019 2:21 PM 03/05/2019 2:23 PM 03/05/2019 2:23 PM RN Exam Complete 03/05/2019 2:21 PM 03/05/2019 2:27 PM 03/05/2019 2:27 PM Registration Complete 03/05/2019 2:23 PM 03/05/2019 2:59 PM 03/05/2019 2:59 PM Wet Read Request 03/05/2019 2:[address] Exam Complete 03/05/2019 2:43 PM 03/05/2019 2:43 PM 03/05/2019 2:43 PM Patient Care Request 03/05/2019 2:46 PM Discharge Complete 03/05/2019 2:46 PM 03/05/2019 3:49 PM 03/05/2019 3:49 PM Reg Complete Request 03/05/2019 2:59 PM Transfer Complete 03/05/2019 3:49 PM 03/05/2019 3:49 PM 03/05/2019 3:49 PM ADDRESS: [id number] [place] [id number] PHYS DOC NOTES: MEDICAL INFORMATION: Prescriptions Given: PATIENT EDUCATION INFORMATION: Instructions: Ankle Sprain Follow up: With: Address: When: [place] [address] UpTo (1) In 3 days 03/08/2019 DIAGNOSIS: Ankle sprain Normal [facility] ED Note-Physicianon 03-05-20 ED Note-Physician Basic Information Time Seen: Humberto Albrecht PA-C 03/05/2019 14:23 Chief Complaint Left ankle pain. [place] and then [place] ankle. Has been having pain and trouble walking since. Happened on Monday. History of Present Illness 71-year-old male comes to the ED for evaluation of a left ankle injury. A few days ago the patient twisted the ankle while skateboarding. He presents complaining of diffuse pain over the ankle with some difficulty weightbearing. No acute weakness. No paresthesias. No other area of injury or concern. No prior treatments. Review of Systems A 10 point review of systems is negative except as noted above. Medical and Surgical History: Reviewed and noted Social history: Lives at home Tobacco: Denies Physical Exam Vitals & Measurements T: 36.6 ?C (Oral) HR: 59(Peripheral) RR: 16 BP: 122/50 SpO2: 98% HT: 178 cm WT: 68.5 kg BMI: 21.62 Nurses notes and vital signs reviewed and patient is not hypoxic. General: The patient appears well, resting comfortably. Skin: Warm, dry. Head: Atraumatic. Neck: No JVD. Eye: Normal conjunctiva. Ears, Nose, Mouth, and Throat: Moist mucous membranes. Cardiovascular: Strong distal pulses. Chest wall: Respiratory: Respirations are nonlabored. Back: Normal range of motion. Musculoskeletal: Diffuse tenderness and swelling over the left ankle. There is some medial ecchymosis. No gross deformity. No joint laxity. Strong pedal pulses. No tenderness over the foot calcaneus. No tenderness of the proximal tibia/fibula Gastrointestinal: Urological: Neurological: Awake and alert. No focal deficits. Follows commands. Psychiatric: Cooperative. Medical Decision Making X-rays show no evidence of fracture or dislocation. The diagnostic limitation of x-rays were discussed. It was explained that follow-up imaging may be necessary, and PCP follow-up was given. Family educated to [facility] therapy. They were encouraged to return the patient to the ED if symptoms worsen or change. Splinting procedure Patient was placed in [place] wrap and Air-Stirrup splint by nursing staff. Remains neurovascular intact. Assessment/Plan Ankle sprain (S93.409A: Sprain of unspecified ligament of unspecified ankle, initial encounter) Orders: [place] Wrap Air Cast Disposition Plan Patient Discharge Condition Disposition: Discharged home Condition: Improved and stable Counseled: Patient and/or family were counseled to workup, results, treatment plan and follow-up recommendations Discharge Prescription List Prescriptions No active prescription medications Follow-up With When Contact Information Halley Arlene In 3 days 03/08/2019 [facility] [employer] [place] [id number] UpTo (1) Additional Instructions: Patient Education Ankle Sprain Attestation Patient seen and evaluated by the physician project assistant. Attending physician was present in the emergency department and supervised care. This report was transcribed using voice recognition software. Every effort was made to ensure accuracy, however, inadvertently computerized medical clerical assistant mistakes may be present. Problem List/Past Medical History Ongoing No qualifying data Historical None Procedure/Surgical History None. Medications Inpatient No active inpatient medications Home No active home medications Allergies No Known Medication Allergies Lab Results No qualifying data available. Diagnostic Results XR Ankle 3+ Views Left 03/05/19 15:15:21 NEGATIVE: No fracture, dislocation or other acute abnormality Read By: Humberto Albrecht PA-C 03/05/19 15:14:15 IMPRESSION: Soft tissue swelling without acute osseous finding. EXAMINATION/TECHNIQ UE: XR Ankle 3+ Views Left HISTORY: Pain. COMPARISON: None RESULT: Ankle mortise is maintained. No acute fracture or dislocation. Joint spaces maintained. Soft tissue swelling about the ankle. No other significant abnormality. Signed By: Fe BALBUENA, Tomas Alvarez [facility] Comment on above: Result Comment: Elec tronically Signed By: Humberto Albrecht PA-C\.br\Date and Time Signed: 03/05/19 15:17 EST\.br\Electronically Co-Signed By: Sonia Shah MD\.br\Date and Time Co-Signed: 03/05/19 16:39 EST ED Patient Education Noteon 03-05-2019 ED Patient Education Note Family Medicine Ankle Sprain An ankle sprain is an injury to the strong, fibrous tissues (ligaments) that hold the bones of your ankle joint together. CAUSES An ankle sprain is usually caused by a fall or by twisting your ankle. Ankle sprains most commonly occur when you step on the outer edge of your foot, and your ankle turns inward. People who participate in sports are more prone to these types of injuries. SYMPTOMS ? Pain in your ankle. The pain may be present at rest or only when you are trying to stand or walk. ? Swelling. ? Bruising. Bruising may develop immediately or within 1 to 2 days after your injury. ? Difficulty standing or walking, particularly when turning corners or changing directions. DIAGNOSIS Your caregiver will ask you details about your injury and perform a physical exam of your ankle to determine if you have an ankle sprain. During the physical exam, your caregiver will press on and apply pressure to specific areas of your foot and ankle. Your caregiver will try to move your ankle in certain ways. An X-ray exam may be done to be sure a bone was not broken or a ligament did not separate from one of the bones in your ankle (avulsion fracture). TREATMENT Certain types of braces can help stabilize your ankle. Your caregiver can make a recommendation for this. Your caregiver may recommend the use of medicine for pain. If your sprain is severe, your caregiver may refer you to a surgeon who helps to restore function to parts of your skeletal system (orthopedist) or a physical therapist. HOME CARE INSTRUCTIONS ? Apply ice to your injury for 1?2 days or as directed by your caregiver. Applying ice helps to reduce inflammation and pain. ? Put ice in a plastic bag. ? Place a towel between your skin and the bag. ? Leave the ice on for 15-20 minutes at a time, every 2 hours while you are awake. ? Only take anla-tmk-neqcrzd or prescription medicines for pain, discomfort, or fever as directed by your caregiver. ? Elevate your injured ankle above the level of your heart as much as possible for 2?3 days. ? If your caregiver recommends crutches, use them as instructed. Gradually put weight on the affected ankle. Continue to use crutches or a cane until you can walk without feeling pain in your ankle. ? If you have a plaster splint, wear the splint as directed by your caregiver. Do not rest it on anything harder than a pillow for the first 24 hours. Do not put weight on it. Do not get it wet. You may take it off to take a shower or bath. ? You may have been given an elastic bandage to wear around your ankle to provide support. If the elastic bandage is too tight (you have numbness or tingling in your foot or your foot becomes cold and blue), adjust the bandage to make it comfortable. ? If you have an air splint, you may blow more air into it or let air out to make it more comfortable. You may take your splint off at night and before taking a shower or bath. Wiggle your toes in the splint several times per day to decrease swelling. SEEK MEDICAL CARE IF: ? You have rapidly increasing bruising or swelling. ? Your toes feel extremely cold or you lose feeling in your foot. ? Your pain is not relieved with medicine. SEEK IMMEDIATE MEDICAL CARE IF: ? Your toes are numb or blue. ? You have severe pain that is increasing. MAKE SURE YOU: ? Understand these instructions. ? Will watch your condition. ? Will get help right away if you are not doing well or get worse. Document Released: 03/20/2006 Document Revised: 12/12/2012 Document Reviewed: 03/31/2012 ExitCare? Patient Information ?2015 [employer]. This information is not intended to replace advice given to you by your health care provider. Make sure you discuss any questions you have with your health care provider. Normal [facility] ED Patient Summaryon 019 ED Patient Summary [address] [address] Patient Discharge Instructions Person Information Name: MARILYN REDDY Age: 18 Years Arrival Date: 03/05/2019 1:31 PM Discharge Diagnosis: Ankle sprain Primary Care Physician: TOI MACHADO MD Provider Information Primary Provider: Sonia Shah MD Advanced Clinical Data Management Manager:Humberto Albrecht PA-C The exam and treatment you received in the Emergency Department were for an urgent problem and are not intended as complete care. It is important that you follow up with a doctor, nurse practitioner, or physician?s project assistant for ongoing care. If your symptoms become worse or you do not improve as expected and you are unable to reach your usual health care provider, you should return to the Emergency Department. We are available 24 hours a day. BARRYMARILYN ESPINOZA has been given the following list of patient education materials, prescriptions and follow-up instructions: Follow-up Instructions: With: Address: When: [address] [place] [address] Business (1) In 3 days 03/08/2019 In the event that this physician does not participate in your insurance network, please consult with your insurance company to find a nearby participating provider. Patient Education Materials: Ankle Sprain A MESSAGE TO ALL PATIENTS REGARDING OPIOIDS PRESCRIPTION OPIOIDS: WHAT YOU NEED TO KNOW Prescription opioids can be used to help relieve cgbqhhnd-nj-wplzwv pain and are often prescribed following a surgery or injury, or for certain health conditions. These medications can be an important part of the treatment but also come with serious risks. It is important to work with your healthcare provider to make sure you are getting the safest, most effective care. WHAT ARE THE RISKS AND SIDE EFFECTS OF OPIOID USE? Prescription opioids carry serious risks of addiction and overdose, especially with prolonged use. An opioid overdose, often marked by slowed breathing, can cause sudden . The use of prescription opioids can have a number of side effects as well, even when taken as directed: ? Tolerance?meaning you might need to take more of the medication for the same pain relief ? Physical dependence?meaning you have symptoms of withdrawal when a medication is stopped ? Increased sensitivity to pain ? Constipation ? Nausea, vomiting, and dry mouth ? Sleepiness and dizziness ? Confusion ? Depression ? Low levels of testosterone that can result in lower sex drive, energy, and strength ? Itching and sweating RISKS ARE GREATER WITH: ? History of drug misuse, substance use disorder, or overdose ? Mental health conditions (such as depression or anxiety) ? Sleep apnea ? Older age (65 years and older) ? Avoid alcohol while taking prescription opioids. Also, unless specifically advised by your health care provider, medications to avoid include: ? Benzodiazepines (such as Xanax or Valium) ? Muscle relaxants (such as Soma or Flexeril) ? Hypnotics (such as Ambien or Lunesta) ? Other prescription opioids KNOW YOUR OPTIONS Talk to your health care provider about ways to manage your pain that don?t involve prescription opioids. Some of these options may actually work better and have fewer risks and side effects. Options may include: ? Pain relievers such as acetaminophen, ibuprofen, and naproxen ? Some medication that are also used for depression or seizures ? Physical therapy and exercise ? Cognitive behavioral therapy, a psychological, goal-directed approach, in which patients learn how to modify physical, behavioral, and emotional triggers of pain and stress. IF YOU ARE PRESCRIBED OPIOIDS FOR PAIN: ? Never take opioids in greater amounts or more often than prescribed. ? Follow up with your primary health care provider. o Work together to create a plan on how to manage your pain. o Talk about ways to help manage your pain that don?t involve prescription opioids. o Talk about any and all concerns and side effects. ? Help prevent misuse and abuse o Never sell or share prescription opioids. o Never use another person?s prescription opioids. ? Store prescription opioids in a secure place and out of reach of others (this may include visitors, children, friends, and family). ? Safely dispose of unused prescription opioids: Find your community drug take-back program or your pharmacy mail-back program, or flush them down the toilet, following guidance from the Food and Drug Administration (www.fda.gov/Drugs/ ResourcesForYou). ? Visit www.cdc.gov/drugove rdose to learn about the risks of opioids abuse and overdose. ? If you believe you may be struggling with addiction, tell your health neonatal intensive care unit nurse and ask for guidance or call SAMHSA?S National Helpline at 9-916-543-JHLL. b Source: [place] Department of Health and Human Services/Center for Disease Control & Prevention [facility] Medications Given: Medication Dose Route No medications found. Medication Information: Comment: Pharmacy Information: [facility] Thank you for choosing [facility] Patient Education Materials: Ankle Sprain An ankle sprain is an injury to the strong, fibrous tissues (ligaments) that hold the bones of your ankle joint together. CAUSES An ankle sprain is usually caused by a fall or by twisting your ankle. Ankle sprains most commonly occur when you step on the outer edge of your foot, and your ankle turns inward. People who participate in sports are more prone to these types of injuries. SYMPTOMS ? Pain in your ankle. The pain may be present at rest or only when you are trying to stand or walk. ? Swelling. ? Bruising. Bruising may develop immediately or within 1 to 2 days after your injury. ? Difficulty standing or walking, particularly when turning corners or changing directions. DIAGNOSIS Your caregiver will ask you details about your injury and perform a physical exam of your ankle to determine if you have an ankle sprain. During the physical exam, your caregiver will press on and apply pressure to specific areas of your foot and ankle. Your caregiver will try to move your ankle in certain ways. An X-ray exam may be done to be sure a bone was not broken or a ligament did not separate from one of the bones in your ankle (avulsion fracture). TREATMENT Certain types of braces can help stabilize your ankle. Your caregiver can make a recommendation for this. Your caregiver may recommend the use of medicine for pain. If your sprain is severe, your caregiver may refer you to a surgeon who helps to restore function to parts of your skeletal system (orthopedist) or a physical therapist. HOME CARE INSTRUCTIONS ? Apply ice to your injury for 1?2 days or as directed by your caregiver. Applying ice helps to reduce inflammation and pain. ? Put ice in a plastic bag. ? Place a towel between your skin and the bag. ? Leave the ice on for 15-20 minutes at a time, every 2 hours while you are awake. ? Only take zvwa-eby-mqdjdud or prescription medicines for pain, discomfort, or fever as directed by your caregiver. ? Elevate your injured ankle above the level of your heart as much as possible for 2?3 days. ? If your caregiver recommends crutches, use them as instructed. Gradually put weight on the affected ankle. Continue to use crutches or a cane until you can walk without feeling pain in your ankle. ? If you have a plaster splint, wear the splint as directed by your caregiver. Do not rest it on anything harder than a pillow for the first 24 hours. Do not put weight on it. Do not get it wet. You may take it off to take a shower or bath. ? You may have been given an elastic bandage to wear around your ankle to provide support. If the elastic bandage is too tight (you have numbness or tingling in your foot or your foot becomes cold and blue), adjust the bandage to make it comfortable. ? If you have an air splint, you may blow more air into it or let air out to make it more comfortable. You may take your splint off at night and before taking a shower or bath. Wiggle your toes in the splint several times per day to decrease swelling. SEEK MEDICAL CARE IF: ? You have rapidly increasing bruising or swelling. ? Your toes feel extremely cold or you lose feeling in your foot. ? Your pain is not relieved with medicine. SEEK IMMEDIATE MEDICAL CARE IF: ? Your toes are numb or blue. ? You have severe pain that is increasing. MAKE SURE YOU: ? Understand these instructions. ? Will watch your condition. ? Will get help right away if you are not doing well or get worse. Document Released: 03/20/2006 Document Revised: 12/12/2012 Document Reviewed: 03/31/2012 ExitCare? Patient Information ?2015 [employer], [employer]. This information is not intended to replace advice given to you by your health care provider. Make sure you discuss any questions you have with your health care provider. BARRY Patel LEE , have received the following patient education materials/instructi ons and have verbalized understanding: Patient Education Materials: Ankle Sprain Follow-up Instructions: With: Address: When: [place] [address] Business (1) In 3 days 03/08/2019 Prescriptions: Patient Signature Date Clinician/Nurse Signature Date 03/05/19 15:49:13 [facility] XR Ankle 3+ Views Lefton XR Ankle 3+ Views Left Exam Date/Time: 03/05/2019 14:38 EST Reason for Exam: Pain Report IMPRESSION: Soft tissue swelling without acute osseous finding. EXAMINATION/TECHNIQ UE: XR Ankle 3+ Views Left HISTORY: Pain. COMPARISON: None RESULT: Ankle mortise is maintained. No acute fracture or dislocation. Joint spaces maintained. Soft tissue swelling about the ankle. No other significant abnormality. FINAL REPORT Dictated: 03/05/2019 3:11 pm Tomas Miramontes MD. Signed (Electronic Signature): 03/05/2019 3:11 pm Signed by: Tomas Miramontes MD Transcribed by: EZEKIEL Technologist: ARACELIS [facility] Vital Signs Date Time Vital Sign Value Performing Clinician Gabi honeycutt 07-08-2022 11:05-0400 Diastolic blood pressure 72 mm[Hg] DIVIDEND DEPOSIT ENTRY CLERK-BC Janell Bullimore Work Phone: [facility] 07-08-2022 11:05-0400 Heart rate 47 /min DIVIDEND DEPOSIT ENTRY CLERK-BC Janell Bullimore Work Phone: [facility] 07-08-2022 11:05-0400 Respiratory rate 18 /min DIVIDEND DEPOSIT ENTRY CLERK-BC Janell Bullimore Work Phone: [facility] 07-08-2022 11:05-0400 SaO2% (BldA) [Mass fraction] 100 % DIVIDEND DEPOSIT ENTRY CLERK-BC Janell Bullimore Work Phone: [facility] 07-08-2022 11:05-0400 Systolic blood pressure 116 mm[Hg] DIVIDEND DEPOSIT ENTRY CLERK-BC Janell Bullimore Work Phone: [facility] 07-08-2022 07:25-0400 Body height 182.88 cm DIVIDEND DEPOSIT ENTRY CLERK-BC Janell Bullimore Work Phone: [facility] 07-08-2022 07:25-0400 Body temperature 97.8 [degF] DIVIDEND DEPOSIT ENTRY CLERK-BC Janell Bullimore Work Phone: [facility] 07-08-2022 07:25-0400 Body weight 71 kg DIVIDEND DEPOSIT ENTRY CLERK-BC Janell Bullimore Work Phone: [facility] 05-05-2022 20:25-0500 Body height 182.88 cm DIVIDEND DEPOSIT ENTRY CLERK-BC Janell Bullimore Work Phone: [facility] 05-05-2022 20:25-0500 Body temperature 97.9 [degF] DIVIDEND DEPOSIT ENTRY CLERK-BC Janell Bullimore Work Phone: [facility] 05-05-2022 20:25-0500 Body weight 73.15 kg DIVIDEND DEPOSIT ENTRY CLERK-BC Janell Bullimore Work Phone: [facility] 05-05-2022 20:25-0500 Diastolic blood pressure 63 mm[Hg] DIVIDEND DEPOSIT ENTRY CLERK-BC Janell Bullimore Work Phone: [facility] 05-05-2022 20:25-0500 Heart rate 72 /min DIVIDEND DEPOSIT ENTRY CLERK-BC Janell Bullimore Work Phone: [facility] 05-05-2022 20:25-0500 Respiratory rate 16 /min DIVIDEND DEPOSIT ENTRY CLERK-BC Janell Bullimore Work Phone: [facility] 05-05-2022 20:25-0500 SaO2% (BldA) [Mass fraction] 99 % DIVIDEND DEPOSIT ENTRY CLERK-BC Janell Bullimore Work Phone: [facility] 05-05-2022 20:25-0500 Systolic blood pressure 135 mm[Hg] DIVIDEND DEPOSIT ENTRY CLERK-BC Janell Bullimore Work Phone: [facility] 04-20-2022 10:09-0500 Body height 182.88 cm DIVIDEND DEPOSIT ENTRY CLERK-BC Janell Bullimore Work Phone: [facility] 04-20-2022 10:09-0500 Body temperature 98.1 [degF] DIVIDEND DEPOSIT ENTRY CLERK-BC Janell Bullimore Work Phone: [facility] 04-20-2022 10:09-0500 Body weight 72.25 kg DIVIDEND DEPOSIT ENTRY CLERK-BC Janell Bullimore Work Phone: [facility] 04-20-2022 10:09-0500 Diastolic blood pressure 77 mm[Hg] DIVIDEND DEPOSIT ENTRY CLERK-BC Janell Bullimore Work Phone: [facility] 04-20-2022 10:09-0500 Heart rate 70 /min DIVIDEND DEPOSIT ENTRY CLERK-BC Janell Bullimore Work Phone: [facility] 04-20-2022 10:09-0500 Respiratory rate 16 /min DIVIDEND DEPOSIT ENTRY CLERK-BC Janell Bullimore Work Phone: [facility] 04-20-2022 10:09-0500 SaO2% (BldA) [Mass fraction] 99 % DIVIDEND DEPOSIT ENTRY CLERK-BC Janell Bullimore Work Phone: [facility] 04-20-2022 10:09-0500 Systolic blood pressure 129 mm[Hg] DIVIDEND DEPOSIT ENTRY CLERK-BC Janell Bullimore Work Phone: [facility] Encounters Encounter Date Encounter Type Care Provider Facility Start: 08-25-2022 End: 08-25-2022 Emergency department patient visit Subhash Mojica Facility:[facility] Start: 08-23-2022 End: 08-23-2022 Emergency department patient visit PHYSICIAN COLLIN HADDAD Facility:[facility] Start: 07-08-2022 End: 07-08-2022 Emergency department patient visit Howie Marcello Rodriguez Facility:[facility] Start: 07-08-2022 End: 07-08-2022 Emergency department patient visit DIVIDEND DEPOSIT ENTRY CLERK-BC Janell Bullimore Work Phone: [facility] Work Phone: Start: 05-05-2022 End: 05-05-2022 Emergency department patient visit Tati Hale Facility:[facility] Start: 05-05-2022 End: 05-05-2022 Emergency department patient visit DIVIDEND DEPOSIT ENTRY CLERK-BC Janell Bullimore Work Phone: [facility] Work Phone: Start: 04-20-2022 End: 04-20-2022 Emergency department patient visit Janell Norris Facility:[facility] Start: 04-20-2022 End: 04-20-2022 Emergency department patient visit DIVIDEND DEPOSIT ENTRY CLERK-BC Janell Bullimore Work Phone: [facility]gency [facility] Work Phone: Start: 06-17-2021 End: 06-17-[address] TOI MACHADO Facility:[facility] Procedures Date Procedure Procedure Detail Performing Clinician Start: 07-08-2022 SARS Antigen (LFIA) DIVIDEND DEPOSIT ENTRY CLERK - Janell Bullimore Work Phone: Plan of Treatment Date Care Activity Detail Author Patient Education [facility] Work Phone: Patient referral [facility] Work Phone: Immunizations Immunization Date Immunization Notes Care Provider Fa cility NEGATED: Highlighted row has not occurred!04-20-2022 tetanus toxoid, reduced diphtheria toxoid, and acellular pertussis vaccine, adsorbed [facility]- Janell Bullimore Work Phone: [facility] Payers Date Payer Category Payer Self-pay 2001 Unknown [id number] 1958 Self-pay [id number] Medicaid [facility] 106 [id number] Unknown [id number] Unknown [id number] Unknown [id number] Unknown [id number] Unknown [id number] Social History Date Type Detail Facility Start: 04-20-2022 End: 05-05-2022 Tobacco smoking status KYIS Never smoked tobacco (finding) [facility] Start: 2000 Sex Assigned At Male F [facility] Start: 07-08-2022 Tobacco smoking stat us KYIS Smoker (finding) [facility] Hospital Discharge instructions 05-05-2022 Note Date & Type Note Facility 05-05-2022 Hospital Discharg e instructions Additional Instructions Keep wound clean and dry Observe for signs of infection Follow with your doctor for recheck in 3 to 5 days Return here if any pus persist or worsen [facility] Work Phone: Hospital Discharge instructions 04-20-2022 Note Date & Type Note Facility 04-20-2022 Hospital Discharg e instructions Additional Instructions [place] can be removed in 10 days Keep it clean and dry wash with soap and water do not use peroxide or alcohol Apply antibiotic ointment 2-3 times a day May apply ice to the sore area May take [id number] Tylenol or ibuprofen as needed for discomfort Return to the ER if severe headache vomiting confusion dizziness uncontrolled bleeding or any other concerns [facility] Work Phone: Evaluation note Note Date & Type Note Facility Evaluation note No assessment information availa ble [facility] Work Phone: Summary Purpose Family History No Family History Records FoundNo Family History Records FoundNo Family History Records Found Advance Directives No Advanced Directives Records Found Advance Directive Response Recorded Date/ Time Advance Directives No April 20, 2022 10:20am Advance Directive Response Recorded Date/ Time Advance Directives No April 20, 2022 11:20am Chief Complaint and Reason for Visit Chief Complaint Head injury Chief Complaint Head injury Stitches Removed Chief Complaint Head injury Stitches Removed vomiting Additional Source Comments (unrecognized sect ion and content) No Status Records FoundNo Status Records FoundNo Status Records Found INFORMATION SOURCE (unrecogn ized section and content) DATE CREATED AUTHOR 11/08/2019 [facility] DATE CREATED AUTHOR AUTHOR'S ORGANIZ ATION 06/21/2021 [facility] DATE CREATED AUTHOR AUTHOR'S ORGANIZ ATION 09/10/2022 [facility] Care Teams (unrecognized sec tion and content) Team Status: Inactive Member Role Status Dates ADELA Lau-RELL Emergency Provider Active PHYSICIAN NO FAMILY Primary Care Provider Active Team Status: Active Member Role Status Dates PHYSICIAN NO FAMILY Primary Care Provider Active Team Status: Inactive Member Role Status Dates PHYSICIAN NO FAMILY Primary Care Provider Active Tati Hale APRN Emergency Provider Active Team Status: Inactive Member Role Status Dates PHYSICIAN NO FAMILY Primary Care Provider Active Howie Rodriguez DO Emergency Provider Active Goals (unrecognized section and content) Goals may be documented in a n alternate sectionGoals may be documented in an alternate sectionGoals may be documented in an alternate section FOR RECORDS PERTAINING TO PATIENTS WHO ARE OR HAVE BEEN ENROLLED IN A CHEMICAL DEPENDENCY/SUBSTANCEABUSE PROGRAM, SOME INFORMATION MAY BE OMITTED. This clinical summary was aggregated from multiple sources. Caution should be exercised in using it in the provision of clinical care. This summary normalizes information from multiple sources, and as a consequence, information in this document may materially change the coding, format and clinical context of patient data. In addition, data may be omitted in some cases. CLINICAL DECISIONS SHOULD BE BASED ON THE PRIMARY CLINICAL RECORDS. [facility] [employer] [facility]. provides no warranty or guarantee of the accuracy or completeness of information in this document.
--- NOTE | 2023-12-28 17:44 | ED.GENADUL1 ---
HPI HPI - General Adult General Chief complaint: Eye Problems Stated complaint: EYE Time Seen by Provider: 12/28/23 17:35 Source: patient Mode of arrival: walk-in History of Present Illness HPI narrative: Patient is a 23-year-old male who presents to the emergency department after getting rust in his eye 15 minutes ago. He states he was working on a car, he states this is not a workers comp claim. He states he saw a tiny speck of rust in his eye but on arrival to the ER and triage, he feels as though the area has moved. No visual loss or direct injury. Unknown last tetanus. No medications prior to arrival Related Data Home Medications ?Medication ?Instructions ?Recorded ?Confirmed No Known Home Medications 12/28/23 12/28/23 Allergies Allergy/AdvReac Type Severity Reaction Status Date / Time No Known Drug Allergies Allergy Verified 12/04/23 12:13 Opioid HPI Opioid Management Most Recent Opioid Data: No Data to Display Review of Systems ROS Constitutional Denies: fever or chills Ears, nose, mouth, and throat Denies: throat pain or nasal congestion Respiratory Denies: shortness of breath Gastrointestinal Denies: nausea or vomiting Musculoskeletal Denies: back pain or neck pain Integumentary/Breast Denies: rash Hematologic/Lymphatic Denies: easy bruising or easy bleeding Exam Narrative Exam Narrative: Gen.: Awake, alert, in no distress Head: Normocephalic, atraumatic ENT: Moist mucous membranes; left eye with mild conjunctival injection, no tearing or purulence. No eyelid swelling. Left eye was examined under Barrera lamp with fluorescein and tetracaine, no rust ring appreciated and no evidence of a foreign body. Mild irritation/uptake inferior to the pupil. No embedded foreign body noted. Normal extraocular muscle motion. Respiratory: No respiratory distress Extremities: Moves extremities equally Psych: Normal mood and affect Neuro: No focal neuro deficit Skin: Warm, dry, intact Constitutional Vital Signs, click to edit/add: Last Vital Signs Temp 98.5 F 12/28/23 17:22 Pulse 62 12/28/23 17:22 Resp 16 12/28/23 17:22 BP 137/80 12/28/23 17:22 Pulse Ox 99 12/28/23 17:22 O2 Del Method Room Air 12/28/23 17:22 Course Vital Signs Vital signs: Vital Signs Temperature 98.5 F 12/28/23 17:22 Pulse Rate 62 12/28/23 17:22 Respiratory Rate 16 12/28/23 17:22 Blood Pressure 137/80 12/28/23 17:22 Pulse Oximetry 99 12/28/23 17:22 Oxygen Delivery Method Room Air 12/28/23 17:22 Temperature 98.5 F 12/28/23 17:22 Pulse Rate 62 12/28/23 17:22 Respiratory Rate 16 12/28/23 17:22 Blood Pressure 137/80 12/28/23 17:22 Pulse Oximetry 99 12/28/23 17:22 Oxygen Delivery Method Room Air 12/28/23 17:22 Medical Decision Making MDM Narrative Medical decision making narrative: Unremarkable eye exam, mild conjunctival injection/irritation noted. Tetanus is updated and the eye was irrigated with eyewash. Tobramycin eyedrops given for home. Follow-up with eye doctor and return to the ER if symptoms change or worsen. SUPERVISED APC VISIT, PHYSICIAN ATTESTATION: Based on the medical record the care appears appropriate. ? Medical Records Medical records reviewed: Yes I reviewed the patient's medical records Discharge Plan Discharge Chief Complaint: Eye Problems Clinical Impression: Eye foreign body Patient Disposition: Home, Self-Care Time of Disposition Decision: 17:51 Condition: Good Prescriptions / Home Meds: No Action No Known Home Medications Print Language: [place] Instructions: Eye Foreign Body (ED) Additional Instructions: Please use tobramycin eye drops 3 times a day for 5 days, 2-3 drops in the left eye Referrals: TOI MACHADO [Primary Care Provider] - 1 week MILAN CHEEK [Physician] - As needed
[2023-12-28] MEDS: ADACEL DIPH,PERTUSS(ACELL),TET VAC/PF 0.5 ML ADULT SYRINGE IM (18:14)
[2023-12-28] MEDS: EYE RELIEF EYE WASH 118 ML/BOTTLE BOTTLE OP (18:16)
[2023-12-28] MEDS: TOBRAMYCIN 0.3% OP SOL 100 DROP/5 ML BOTTLE OP (18:16)
== END 2023-12-28 18:22 | disposition home or self-care (01) ==
PROVIDERS: Emergency Provider Emergency Medicine; PCP Family Medicine
DX: T15.92XA Foreign body on external eye, part unspecified, left eye, initial encounter (principal); Z23 Encounter for immunization
CPT/HCPCS: 90471; 90715; 99283

== ENCOUNTER 2024-05-19 16:03 | Emergency (ER) | payer SELFPAY ==
[2024-05-19 16:06] VITALS: BP 123/68; PULSE 83; TEMP 36.6; O2SAT 99; BMI 24.4
--- NOTE | 2024-05-19 16:06 | ECG_ITS ---
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
--- NOTE | 2024-05-19 16:07 | ED_ITS ---
HPI - Chest Pain General Chief Complaint: Chest Pain Stated Complaint: CHEST PAIN Time Seen by Provider: 05/19/24 16:05 Source: patient Mode of arrival: ambulance History of Present Illness HPI narrative: Patient is a 23-year-old male with no major medical history who presents to the emergency department by ambulance for chest pain that began 25 to 30 minutes ago. Patient states for the last several days he has had mild cough and cold symptoms. He states the pain is worse with movement, deep breathing and coughing. No sputum production or hemoptysis. He has had no objective fevers, extremity swelling. He is a regular smoker. No medications were given by EMS prior to arrival. Related Data Home Medications ?Medication ?Instructions ?Recorded ?Confirmed No Known Home Medications 12/28/23 05/19/24 Previous Rx's ?Medication ?Instructions ?Recorded ketorolac 10 mg tablet 10 mg PO TID PRN pain #10 tabs 05/19/24 methylprednisolone 4 mg tablets in See Rx Instructions .Route 05/19/24 a dose pack (Medrol (Antwon)) .COMPLEX #21 ea Allergies Allergy/AdvReac Type Severity Reaction Status Date / Time No Known Drug Allergies Allergy Verified 05/19/24 16:06 Review of Systems ROS Constitutional Denies: fever or chills Ears, nose, mouth, and throat Reports: nasal congestion; Denies: throat pain Cardiovascular Reports: chest pain Respiratory Reports: cough; Denies: shortness of breath Gastrointestinal Denies: nausea, vomiting or diarrhea Integumentary/Breast Denies: rash Neurological Denies: numbness in extremities or weakness in extremities Hematologic/Lymphatic Denies: easy bruising or easy bleeding PFSH PFSH Social History Little interest or pleasure in doing things: not at all Feeling down, depressed, or hopeless: not at all Exam Narrative Exam Narrative: Gen.: Awake, alert, in no distress Head: Normocephalic, atraumatic ENT: Moist mucous membranes Respiratory: No respiratory distress, lungs clear bilaterally, no wheezing or rhonchi Cardio: Regular rate and rhythm, tenderness of the anterior chest over the sternum to palpation with no rashes noted Extremities: Moves extremities equally Psych: Normal mood and affect Neuro: No focal neuro deficit Skin: Warm, dry, intact Constitutional Vital Signs, click to edit/add: Last Vital Signs Temp 97.8 F 05/19/24 16:06 Pulse 83 05/19/24 16:06 Resp 16 05/19/24 16:06 BP 123/68 05/19/24 16:06 Pulse Ox 99 05/19/24 16:06 O2 Del Method Room Air 05/19/24 16:06 Course Vital Signs Vital signs: Vital Signs Temperature 97.8 F 05/19/24 16:06 Pulse Rate 83 05/19/24 16:06 Respiratory Rate 16 05/19/24 16:06 Blood Pressure 123/68 05/19/24 16:06 Pulse Oximetry 99 05/19/24 16:06 Oxygen Delivery Method Room Air 05/19/24 16:06 Temperature 97.8 F 05/19/24 16:06 Pulse Rate 83 05/19/24 16:06 Respiratory Rate 16 05/19/24 16:06 Blood Pressure 123/68 05/19/24 16:06 Pulse Oximetry 99 05/19/24 16:06 Oxygen Delivery Method Room Air 05/19/24 16:06 MDM - Chest Pain MDM Narrative Medical decision making narrative: Lab studies, EKG including troponin and D-dimer are within normal limits. Patient treated for pleuritic type pain with Toradol and Solu-Medrol. Chest x- ray is unremarkable by my interpretation and attending physician. He will be treated for pleurisy with Toradol and Medrol Dosepak. Follow-up PCP and return to the ER if symptoms change or worsen SHARED APC VISIT, PHYSICIAN ATTESTATION: [id number] I performed a substantive part of the MDM during the patient?s E/M visit. I personally evaluated and examined the patient. I personally made or approved the documented management plan and acknowledge its risk of complications. Medical Records Data Attestation: I reviewed the patient's medical records. Lab Data Attestation: I reviewed the patient's lab results. Labs: Lab Results 05/19/24 Range/Units 16:13 WBC 5.1 (4.0-11.0) 10^3/uL RBC 4.80 (4.70-6.10) 10^6/uL Hgb 14.4 (14.0-18.0) g/dL Hct 40.1 L (42.0-54.0) % MCV 83.5 (80.0-94.0) fL MCH 30.0 (25.9-34.0) pg MCHC 35.9 H (29.9-35.2) g/dL RDW 11.7 (11.0-15.0) % Plt Count 183 (150-450) 10^3/uL MPV 9.5 (9.5-13.5) fL Neut % (Auto) 73.3 (43.0-75.0) % Lymph % (Auto) 13.8 L (20.5-60.0) % Cotton % (Auto) 12.1 H (1.7-12.0) % Eos % (Auto) 0.4 L (0.9-7.0) % Baso % (Auto) 0.2 (0.2-2.0) % Neut # (Auto) 3.8 (1.4-6.5) 10^3/uL Lymph # (Auto) 0.7 L (1.2-3.8) 10^3/uL Cotton # (Auto) 0.6 (0.3-0.8) 10^3/uL Eos # (Auto) 0.0 (0.0-0.7) 10^3/uL Baso # (Auto) 0.0 (0.0-0.1) 10^3/uL Abs Immat Gran (auto) 0.01 (0.00-0.03) 10^3/uL Imm/Tot Granulo (auto) 0.2 (0.0-0.5) % D-Dimer 0.34 (<=0.59) mg/L FEU Sodium 135 L (136-145) mmol/L Potassium 3.3 L (3.5-5.1) mmol/L Chloride 100 (98-107) mmol/L Carbon Dioxide 25.3 (21.0-32.0) mmol/L Anion Gap 13.0 BUN 14.0 (7.0-18.0) mg/dL Creatinine 1.17 (0.70-1.30) mg/dL Est GFR ( Amer) >60 (>=60 mL/min/1.73m^2) Est GFR (Non-Af Amer) >60 (>=60 mL/min/1.73m^2) BUN/Creatinine Ratio 12.0 Glucose 100 (74-106) mg/dL Calcium 8.7 (8.5-10.1) mg/dL Total Bilirubin 0.7 (0.2-1.0) mg/dL AST 26 (15-37) U/L ALT 23 (16-63) U/L Alkaline Phosphatase 73 (46-116) U/L Troponin I High Sens 9.5 (4.0-76.1) pg/mL Total Protein 7.3 (6.4-8.2) g/dL Albumin 3.7 (3.4-5.0) g/dL Globulin 3.6 g/dL Albumin/Globulin Ratio 1.0 Imaging Data Chest x-ray: Attestation: I have reviewed the pertinent imaging results. ECG Data Attestation: I personally reviewed and interpreted this ECG as follows: (Normal sinus rhythm at a rate of 67, sinus arrhythmia with no acute ST elevation or ectopy. EKG reviewed by attending physician.) Heart Score History: Slightly/Non-Suspicious ECG: Normal Age: <45 years Risk Factors: 1 or 2 Risk Factors Troponin: <Normal Limit Total Heart Score Recommendations & Risks:: 1 Discharge Plan Discharge Chief Complaint: Chest Pain Clinical Impression: Atypical chest pain, Pleurisy Patient Disposition: Home, Self-Care Time of Disposition Decision: 17:16 Condition: Good Prescriptions / Home Meds: New ketorolac 10 mg tablet 10 mg PO TID PRN (Reason: pain) Qty: 10 0RF methylprednisolone [Medrol (Antwon)] 4 mg tablets,dose pack See Rx Instructions .ROUTE .COMPLEX Qty: 21 0RF Rx Instructions: Taper as directed No Action No Known Home Medications Print Language: [place] Instructions: Pleurisy (ED) Referrals: TOI MACHADO [Primary Care Provider] - 1 week
[2024-05-19] MEDS: METHYLPREDNISOLONE SOD SUCC PF 125 MG/2 ML VIAL IVP (16:11)
[2024-05-19] MEDS: KETOROLAC TROMETHAMINE 30 MG/ML VIAL IVP (16:11)
--- OUTSIDE RECORDS SUMMARY | 2024-05-19 16:18 | XMS_ITS | CCD ---
Author Organization [facility] Care Team Providers Care Learning Designer Name Role Phone DR TOI MACHADO Primary Care Unavailable PRANEETH DAVIS Admitting Unavailable PRANEETH DAVIS Attending Unavailable PRANEETH DAVIS Consulting Unavailable [place], [facility] Janell E Emergency Provider NO FAMILY, PHYSICIAN Primary Care Provider Unava ilable Saffle, SPINE SURGEON Tati N Emergency Provider [place], [facility] Janell E Emergency Provider NO FAMILY, PHYSICIAN Primary Care Provider Unava ilable Saffle, SPINE SURGEON Tati N Emergency Provider DO Howie Rodriguez [...] Reference Range Facility CT abdomen pelvis wo [facility] 0 08-25-2022 CT abdomen pelvis [facility] [place] [address] CT Scan Report Signed Patient: Marilyn Reddy MR#: [id number] 7 : 2000 Acct:[id number] Age/Sex: 22 / M ADM Date: 08/25/22 Loc: ER Room: Type: [facility] ER Attending Dr: Copies to: Subhash Mojica MD Ordering Provider: Subhash Mojica MD Date [...] Piyush Hopper M.D.08/25/2022 10:10 AM Dictation Location: [place] [address] Transcribed By: [facility] 08/25/22 1010 Dictated By: Piyush Hopper II, MD 08/25/22 1004 Signed By: 08/25/22 1010 Normal [facility] Complete Blood Count Auto Di ffon 08-25-2022 Basophils (Bld) [#/Vol] 0.0 10*3/uL Normal 0.0-0.2 [facility] Comment on above: Result Comment: PERF ORMED BY: [address] [place] [address] PATHOLOGIST AUDIO VISUAL COORDINATOR MARYANN CORTEZ M.D. Performed By: #### L IPASE, CMP, CBC #### [address] [place] [address] [place] Basophils/100 WBC (Bld) 0.4 % Normal . F [facility] Comment on above: Performed By: #### L IPASE, CMP, CBC #### [facility] [address] Eosinophils (Bld) [#/Vol] 0.0 10*3/uL Normal 0.0-0.45 [facility] Comment on above: Performed By: #### L IPASE, CMP, CBC #### [facility] [address] [place] [address] [place] Eosinophils/100 WBC (Bld) 0.4 % Normal . [facility] Comment on above: Performed By: #### L IPASE, CMP, CBC #### [address] Erythrocyte distribution width (RBC) [Ratio] 13.5 % Normal 12.0-14.8 [facility] Comment on above: Performed By: #### L IPASE, CMP, CBC #### [address] Hematocrit (Bld) [Volume fraction] 42.7 % Normal 38.8-50.0 [facility] Comment on above: Performed By: #### L IPASE, CMP, CBC #### [place] [address] [place] Hemoglobin (Bld) [Mass/Vol] 15.0 g/dL Normal 13.0-17.0 [facility] Comment on above: Performed By: #### L IPASE, CMP, CBC #### [place] [address] [place] Lymphocytes (Bld) [#/Vol] 0.9 10*3/uL Low 1.00-4.8 [facility] Comment on above: Performed By: #### L IPASE, CMP, CBC #### [place] [address] [place] Lymphocytes/100 WBC (Bld) 12.4 % Normal . [facility] Comment on above: Performed By: #### L IPASE, CMP, CBC #### [facility] [address] MCH (RBC) [Entitic mass] 29.7 pg Normal 27.5-35.2 [facility] Comment on above: Performed By: #### L IPASE, CMP, CBC #### [facility] [address] MCV (RBC) [Entitic vol] 84.3 fL Normal 83.5-101 F [facility] Comment on above: Performed By: #### L IPASE, CMP, CBC #### [address] Mean Corpuscular HGB Conc 35.2 g/dL Normal 32.5-35.6 [facility] Comment on above: Performed By: #### L IPASE, CMP, CBC #### [address] Monocytes (Bld) [#/Vol] 0.4 10*3/uL Normal 0.0-0.8 [facility] Comment on above: Performed By: #### L IPASE, CMP, CBC #### [place] [address] [place] Monocytes/100 WBC (Bld) 16.20 % Normal 0.00-20.00 [facility] Comment on above: Performed By: #### L IPASE, CMP, CBC #### [place] [address] [place] Monocytes/100 WBC (Bld) 4.7 % Normal . F [facility] Comment on above: Performed By: #### L IPASE, CMP, CBC #### [facility] [address] [place] [address] [place] Neutrophils (Bld) [#/Vol] 6.2 10*3/uL Normal 1.8-7.7 [facility] Comment on above: Performed By: #### L IPASE, CMP, CBC #### [facility] [address] [place] [address] [place] Neutrophils/100 WBC (Bld) 82.1 % Normal . [facility] Comment on above: Performed By: #### L IPASE, CMP, CBC #### [address] NRBC% 0.1 /100{WBC} Normal 0-0.5 [facility] Comment on above: Performed By: #### L IPASE, CMP, CBC #### [address] Platelet mean volume (Bld) [Entitic vol] 8.0 fL Normal 6.6-10.1 [facility] Comment on above: Performed By: #### L IPASE, CMP, CBC #### [address] Platelets (Bld) [#/Vol] 232 10*3/uL Normal 150-450 [facility] Comment on above: Performed By: #### L IPASE, CMP, CBC #### [address] RBC (Bld) [#/Vol] 5.06 10*6/uL Normal 3.90-5.60 [facility] Comment on above: Performed By: #### L IPASE, CMP, CBC #### [address] WBC (Bld) [#/Vol] 7.5 10*3/uL Normal 4.1-10.5 [facility] Comment on above: Performed By: #### L IPASE, CMP, CBC #### [address] Comprehensive Metabolic Pane prem 08-25-2022 Albumin [Mass/Vol] 4.4 g/dL Normal 3.5-5.7 [facility] Comment on above: Performed By: #### L IPASE, CMP, CBC #### [address] Albumin/Globulin [Mass ratio] 1.5 {ratio} Normal [facility] Comment on above: Performed By: #### L IPASE, CMP, CBC #### [address] [place] [address] [place] ALP [Catalytic activity/Vol] 76 U/L Normal 34-104 [facility] Comment on above: Performed By: #### L IPASE, CMP, CBC #### [facility] [address] ALT [Catalytic activity/Vol] 17 U/L Normal 7-52 [facility] Comment on above: Performed By: #### L IPASE, CMP, CBC #### [facility] [address] Anion gap [Moles/Vol] 10.1 mmol/L Normal 6.0-15.0 [facility] Comment on above: Performed By: #### L IPASE, CMP, CBC #### [address] AST [Catalytic activity/Vol] 14 U/L Normal 13-39 [facility] Comment on above: Performed By: #### L IPASE, CMP, CBC #### [address] Bilirubin [Mass/Vol] 0.7 mg/dL Normal 0.3-1.0 [facility] Comment on above: Performed By: #### L IPASE, CMP, CBC #### [address] Calcium [Mass/Vol] 9.1 mg/dL Normal 8.6-10.3 [facility] Comment on above: Performed By: #### L IPASE, CMP, CBC #### [place] [address] [place] Chloride [Moles/Vol] 102 mmol/L Normal 98-107 [facility] Comment on above: Performed By: #### L IPASE, CMP, CBC #### [facility] [address] CO2 [Moles/Vol] 28.1 mmol/L Normal 21.0-31.0 [facility] Comment on above: Performed By: #### L IPASE, CMP, CBC #### [facility] [address] Creatinine [Mass/Vol] 0.95 mg/dL Normal 0.70-1.30 [facility] Comment on above: Performed By: #### L IPANINFA SPANN, CBC #### [facility] [address] [place] [address] [place] Creatinine Clr Calc Pharmacy 129.09 [facility] Comment on above: Performed By: #### L IPASE, CMP, CBC #### [facility] [address] GFR/1.73 sq M.predicted MDRD (S/P/Bld) [Vol rate/Area] mL/min/{1.73_m2} [facility] Comment on above: Performed By: #### L IPASE CMP, CBC #### [facility] [address] Globulin (S) [Mass/Vol] 2.9 g/dL Normal [facility] Comment on above: Performed By: #### L IPASE, CMP, CBC #### [facility] [address] Glucose [Mass/Vol] 104 mg/dL High 70-100 [facility] Comment on above: Result Comment: [facility] Glucose Reference Range is dependent on time and content of last meal. Glucose of more than 200 mg/dL in a nonstressed, ambulatory subject supports the diagnosis of Diabetes Mellitus. ADA recommended reference range Performed By: #### L IPASE, CMP, CBC #### [facility] [address] Potassium [Moles/Vol] 4.2 mmol/L Normal 3.5-5.1 [facility] Comment on above: Performed By: #### L IPASE, CMP, CBC #### [facility] [address] Protein [Mass/Vol] 7.3 g/dL Normal 6.4-8.9 [facility] Comment on above: Performed By: #### L IPASE, CMP, CBC #### [facility] [address] [place] [address] Sodium [Moles/Vol] 136 mmol/L Normal 136-145 [facility] Comment on above: Performed By: #### L IPASE, CMP, CBC #### [address] Urea nitrogen [Mass/Vol] 21 mg/dL Normal 7-25 [facility] Comment on above: Performed By: #### L IPASE, CMP, CBC #### [address] Dipstick and Microscopicon 0 08-25-2022 Appearance (U) Turbid Critically abnormal Clear [facility] Comment on above: Order Comment: Name Collection Type:: Clean-Voided Midstream Performed By: #### H EPATIC, CBC, BMP, LIPASE #### [address] Bacteria,Urine None Seen Normal None Seen [facility] Comment on above: Order Comment: Name Collection Type:: Clean-Voided Midstream Performed By: #### H EPATIC, CBC, BMP, LIPASE #### [address] Bilirubin,Urine Negative Normal Negative [facility] Comment on above: Order Comment: Name Collection Type:: Clean-Voided Midstream Performed By: #### H EPATIC, CBC, BMP, LIPASE #### [address] Color (U) Yellow Normal Yellow [facility] Comment on above: Order Comment: Name Collection Type:: Clean-Voided Midstream Performed By: #### H EPATIC, CBC, BMP, LIPASE #### [facility] [address] [place] [address] Glucose Ql (U) Normal Normal Normal [facility] Comment on above: Order Comment: Name Collection Type:: Clean-Voided Midstream Performed By: #### H EPATIC, CBC, BMP, LIPASE #### [address] Hyaline Casts,Urine 0-8 Normal 0-8 [facility] Comment on above: Order Comment: Name Collection Type:: Clean-Voided Midstream Result Comment: PERF ORMED BY: [place] [address] PATHOLOGIST AUDIO VISUAL COORDINATOR MARYANN CORTEZ M.D. Performed By: #### H EPATIC, CBC, BMP, LIPASE #### [address] Ketones Ql (U) Negative Normal Negative [facility] Comment on above: Order Comment: Name Collection Type:: Clean-Voided Midstream Performed By: #### H EPATIC, CBC, BMP, LIPASE #### [address] Leukocyte esterase Test strip Ql (U) Negative Normal Negative [facility] Comment on above: Order Comment: Name Collection Type:: Clean-Voided Midstream Performed By: #### H EPATIC, CBC, BMP, LIPASE #### [address] Nitrite,Urine Negative Normal Negative [facility] Comment on above: Order Comment: Name Collection Type:: Clean-Voided Midstream Performed By: #### H EPATIC, CBC, BMP, LIPASE #### [address] Occult Blood,Urine Negative Normal Negative [facility] Comment on above: Order Comment: Name Collection Type:: Clean-Voided Midstream Result Comment: PERF ORMED BY: [place] [address] PATHOLOGIST AUDIO VISUAL COORDINATOR MARYANN CORTEZ M.D. Performed By: #### H EPATIC, CBC, BMP, LIPASE #### [address] pH (U) 7.0 [pH] Normal 5.0-9.0 [facility] Comment on above: Order Comment: Name Collection Type:: Clean-Voided Midstream Performed By: #### H EPATIC, CBC, BMP, LIPASE #### [address] Protein,Urine Negative Normal Negative [facility] Comment on above: Order Comment: Name Collection Type:: Clean-Voided Midstream Performed By: #### H EPATIC, CBC, BMP, LIPASE #### [address] RBC LM.HPF (Urine sed) [#/Area] 0 /[HPF] Normal 0-4 [facility] Comment on above: Order Comment: Name Collection Type:: Clean-Voided Midstream Performed By: #### H EPATIC, CBC, BMP, LIPASE #### [address] Specificy [place],Urine 1.025 Normal 1.001-1.030 [facility] Comment on above: Order Comment: Name Collection Type:: Clean-Voided Midstream Performed By: #### H EPATIC, CBC, BMP, LIPASE #### [address] Squamous Epithelial Cell,Urine None Seen Normal 0-2 [facility] Comment on above: Order Comment: Name Collection Type:: Clean-Voided Midstream Performed By: #### H EPATIC, CBC, BMP, LIPASE #### [address] Urobilinogen,Urine Normal Normal Normal [facility] Comment on above: Order Comment: Name Collection Type:: Clean-Voided Midstream Performed By: #### H EPATIC, CBC, BMP, LIPASE #### [address] WBC LM.HPF (Urine sed) [#/Area] 0 /[HPF] Normal 0-4 [facility] Comment on above: Order Comment: Name Collection Type:: Clean-Voided Midstream Performed By: #### H EPATIC, CBC, BMP, LIPASE #### [address] Lipaseon 08-25-2022 Lipase [Catalytic activity/Vol] 14.0 U/L Normal 11.0-82.0 [facility] Comment on above: Result Comment: PERF ORMED BY: [address] [place] [address] PATHOLOGIST AUDIO VISUAL COORDINATOR MARYANN CORTEZ M.D. Performed By: #### H EPATIC, CBC, BMP, LIPASE #### [address] Basic Metabolic Panelon 05-2 Anion gap [Moles/Vol] 11.2 mmol/L Normal 6.0-15.0 [facility] Comment on above: Performed By: #### H EPATIC, CBC, BMP, LIPASE #### [address] Calcium [Mass/Vol] 8.7 mg/dL Normal 8.6-10.3 [facility] Comment on above: Performed By: #### H EPATIC, CBC, BMP, LIPASE #### [address] Chloride [Moles/Vol] 102 mmol/L Normal 98-107 [facility] Comment on above: Performed By: #### H EPATIC, CBC, BMP, LIPASE #### [address] CO2 [Moles/Vol] 25.6 mmol/L Normal 21.0-31.0 [facility] Comment on above: Performed By: #### H EPATIC, CBC, BMP, LIPASE #### [address] Creatinine [Mass/Vol] 0.81 mg/dL Normal 0.70-1.30 [facility] Comment on above: Performed By: #### H EPATIC, CBC, BMP, LIPASE #### [facility] [address] [place] [address] Creatinine Clr Calc Pharmacy 153.85 [facility] Comment on above: Performed By: #### H EPATIC, CBC, BMP, LIPASE #### [place] [address] [place] GFR/1.73 sq M.predicted MDRD (S/P/Bld) [Vol rate/Area] mL/min/{1.73_m2} [facility] Comment on above: Performed By: #### H EPATIC, CBC, BMP, LIPASE #### [facility] [address] Glucose [Mass/Vol] 99 mg/dL Normal 70-100 [facility] Comment on above: Result Comment: [facility] Glucose Reference Range is dependent on time and content of last meal. Glucose of more than 200 mg/dL in a nonstressed, ambulatory subject supports the diagnosis of Diabetes Mellitus. ADA recommended reference range Performed By: #### H EPATIC, CBC, BMP, LIPASE #### [facility] [address] Potassium [Moles/Vol] 3.8 mmol/L Normal 3.5-5.1 [facility] Comment on above: Performed By: #### H EPATIC, CBC, BMP, LIPASE #### [address] Sodium [Moles/Vol] 135 mmol/L Low 136-145 [facility] Comment on above: Performed By: #### H EPATIC, CBC, BMP, LIPASE #### [address] Urea nitrogen [Mass/Vol] 27 mg/dL High 7-25 [facility] Comment on above: Performed By: #### H EPATIC, CBC, BMP, LIPASE #### [address] Complete Blood Count Auto Di ffon 08-23-2022 Basophils (Bld) [#/Vol] 0.1 10*3/uL Normal 0.0-0.2 [facility] Comment on above: Result Comment: PERF ORMED BY: [place] [address] PATHOLOGIST AUDIO VISUAL COORDINATOR MARYANN CORTEZ M.D. Performed By: #### H EPATIC, CBC, BMP, LIPASE #### [address] Basophils/100 WBC (Bld) 0.7 % Normal . F [facility] Comment on above: Performed By: #### H EPATIC, CBC, BMP, LIPASE #### [address] Eosinophils (Bld) [#/Vol] 0.1 10*3/uL Normal 0.0-0.45 [facility] Comment on above: Performed By: #### H EPATIC, CBC, BMP, LIPASE #### [address] Eosinophils/100 WBC (Bld) 1.4 % Normal . [facility] Comment on above: Performed By: #### H EPATIC, CBC, BMP, LIPASE #### [address] Erythrocyte distribution width (RBC) [Ratio] 13.3 % Normal 12.0-14.8 [facility] Comment on above: Performed By: #### H EPATIC, CBC, BMP, LIPASE #### [address] Hematocrit (Bld) [Volume fraction] 42.6 % Normal 38.8-50.0 [facility] Comment on above: Performed By: #### H EPATIC, CBC, BMP, LIPASE #### [address] Hemoglobin (Bld) [Mass/Vol] 14.9 g/dL Normal 13.0-17.0 [facility] Comment on above: Performed By: #### H EPATIC, CBC, BMP, LIPASE #### [address] Lymphocytes (Bld) [#/Vol] 2.1 10*3/uL Normal 1.00-4.8 [facility] Comment on above: Performed By: #### H EPATIC, CBC, BMP, LIPASE #### [address] Lymphocytes/100 WBC (Bld) 26.5 % Normal . [facility] Comment on above: Performed By: #### H EPATIC, CBC, BMP, LIPASE #### [address] MCH (RBC) [Entitic mass] 29.6 pg Normal 27.5-35.2 [facility] Comment on above: Performed By: #### H EPATIC, CBC, BMP, LIPASE #### [address] MCV (RBC) [Entitic vol] 84.5 fL Normal 83.5-101 F [facility] Comment on above: Performed By: #### H EPATIC, CBC, BMP, LIPASE #### [address] Mean Corpuscular HGB Conc 35.1 g/dL Normal 32.5-35.6 [facility] Comment on above: Performed By: #### H EPATIC, CBC, BMP, LIPASE #### [address] Monocytes (Bld) [#/Vol] 0.7 10*3/uL Normal 0.0-0.8 [facility] Comment on above: Performed By: #### H EPATIC, CBC, BMP, LIPASE #### [address] Monocytes/100 WBC (Bld) 16.32 % Normal 0.00-20.00 [facility] Comment on above: Performed By: #### H EPATIC, CBC, BMP, LIPASE #### [address] Monocytes/100 WBC (Bld) 8.5 % Normal . F [facility] Comment on above: Performed By: #### H EPATIC, CBC, BMP, LIPASE #### [address] Neutrophils (Bld) [#/Vol] 5.1 10*3/uL Normal 1.8-7.7 [facility] Comment on above: Performed By: #### H EPATIC, CBC, BMP, LIPASE #### [address] Neutrophils/100 WBC (Bld) 62.9 % Normal . [facility] Comment on above: Performed By: #### H EPATIC, CBC, BMP, LIPASE #### [address] NRBC% 0.2 /100{WBC} Normal 0-0.5 [facility] Comment on above: Performed By: #### H EPATIC, CBC, BMP, LIPASE #### [address] Platelet mean volume (Bld) [Entitic vol] 7.9 fL Normal 6.6-10.1 [facility] Comment on above: Performed By: #### H EPATIC, CBC, BMP, LIPASE #### [address] Platelets (Bld) [#/Vol] 235 10*3/uL Normal 150-450 [facility] Comment on above: Performed By: #### H EPATIC, CBC, BMP, LIPASE #### [address] RBC (Bld) [#/Vol] 5.04 10*6/uL Normal 3.90-5.60 [facility] Comment on above: Performed By: #### H EPATIC, CBC, BMP, LIPASE #### [address] WBC (Bld) [#/Vol] 8.1 10*3/uL Normal 4.1-10.5 [facility] Comment on above: Performed By: #### H EPATIC, CBC, BMP, LIPASE #### [address] Dipstick and Microscopicon 0 08-23-2022 Appearance (U) Cloudy Critically abnormal Clear [facility] Comment on above: Order Comment: Name Collection Type:: Clean-Voided Midstream Performed By: #### A DDONUAPLUS #### [address] Bacteria,Urine None Seen Normal None Seen [facility] Comment on above: Order Comment: Name Collection Type:: Clean-Voided Midstream Performed By: #### A DDONUAPLUS #### [facility] [address] [place] [address] [place] Bilirubin,Urine Negative Normal Negative [facility] Comment on above: Order Comment: Name Collection Type:: Clean-Voided Midstream Performed By: #### A DDONUAPLUS #### [facility] [address] [place] [address] Color (U) Yellow Normal Yellow [facility] Comment on above: Order Comment: Name Collection Type:: Clean-Voided Midstream Performed By: #### A DDONUAPLUS #### [facility] [address] [place] [address] [place] Glucose Ql (U) Normal Normal Normal [facility] Comment on above: Order Comment: Name Collection Type:: Clean-Voided Midstream Performed By: #### A DDONUAPLUS #### [facility] [address] [place] [address] [place] Hyaline Casts,Urine None Seen Normal 0-8 [facility] Comment on above: Order Comment: Name Collection Type:: Clean-Voided Midstream Result Comment: PERF ORMED BY: [place] [address] PATHOLOGIST AUDIO VISUAL COORDINATOR MARYANN CORTEZ M.D. Performed By: #### A DDONUAPLUS #### [facility] [address] [place] [address] [place] Ketones Ql (U) Negative Normal Negative [facility] Comment on above: Order Comment: Name Collection Type:: Clean-Voided Midstream Performed By: #### A DDONUAPLUS #### [facility] [address] [place] [address] [place] Leukocyte esterase Test strip Ql (U) Negative Normal Negative [facility] Comment on above: Order Comment: Name Collection Type:: Clean-Voided Midstream Performed By: #### A DDONUAPLUS #### [facility] [address] [place] [address] [place] Nitrite,Urine Negative Normal Negative [facility] Comment on above: Order Comment: Name Collection Type:: Clean-Voided Midstream Performed By: #### A DDONUAPLUS #### [address] Occult Blood,Urine Negative Normal Negative [facility] Comment on above: Order Comment: Name Collection Type:: Clean-Voided Midstream Result Comment: PERF ORMED BY: [place] [address] PATHOLOGIST AUDIO VISUAL COORDINATOR MARYANN CORTEZ M.D. Performed By: #### A DDONUAPLUS #### [address] pH (U) 7.0 [pH] Normal 5.0-9.0 [facility] Comment on above: Order Comment: Name Collection Type:: Clean-Voided Midstream Performed By: #### A DDONUAPLUS #### [address] Protein,Urine Negative Normal Negative [facility] Comment on above: Order Comment: Name Collection Type:: Clean-Voided Midstream Performed By: #### A DDONUAPLUS #### [address] RBC LM.HPF (Urine sed) [#/Area] 0 /[HPF] Normal 0-4 [facility] Comment on above: Order Comment: Name Collection Type:: Clean-Voided Midstream Performed By: #### A DDONUAPLUS #### [address] Specificy [place],Urine 1.022 Normal 1.001-1.030 [facility] Comment on above: Order Comment: Name Collection Type:: Clean-Voided Midstream Performed By: #### A DDONUAPLUS #### [address] Squamous Epithelial Cell,Urine None Seen Normal 0-2 [facility] Comment on above: Order Comment: Name Collection Type:: Clean-Voided Midstream Performed By: #### A DDONUAPLUS #### [address] Urobilinogen,Urine Normal Normal Normal [facility] Comment on above: Order Comment: Name Collection Type:: Clean-Voided Midstream Performed By: #### A DDONUAPLUS #### [address] WBC LM.HPF (Urine sed) [#/Area] 0 /[HPF] Normal 0-4 [facility] Comment on above: Order Comment: Name Collection Type:: Clean-Voided Midstream Performed By: #### A DDONUAPLUS #### [address] Hepatic Panelon 08-23-2022 Albumin [Mass/Vol] 4.2 g/dL Normal 3.5-5.7 [facility] Comment on above: Performed By: #### H EPATIC, CBC, BMP, LIPASE #### [address] Albumin/Globulin [Mass ratio] 1.4 {ratio} Normal [facility] Comment on above: Performed By: #### H EPATIC, CBC, BMP, LIPASE #### [address] ALP [Catalytic activity/Vol] 84 U/L Normal 34-104 [facility] Comment on above: Performed By: #### H EPATIC, CBC, BMP, LIPASE #### [address] ALT [Catalytic activity/Vol] 18 U/L Normal 7-52 [facility] Comment on above: Performed By: #### H EPATIC, CBC, BMP, LIPASE #### [address] AST [Catalytic activity/Vol] 17 U/L Normal 13-39 [facility] Comment on above: Performed By: #### H EPATIC, CBC, BMP, LIPASE #### [address] Bilirubin [Mass/Vol] 0.7 mg/dL Normal 0.3-1.0 [facility] Comment on above: Performed By: #### H EPATIC, CBC, BMP, LIPASE #### [address] [place] [address] [place] Bilirubin,Indirect 0.6 mg/dL Normal [facility] Comment on above: Performed By: #### H EPATIC, CBC, BMP, LIPASE #### [facility] [address] Bilirubin.indirect [Mass/Vol] 0.10 mg/dL Normal 0.03-0.18 [facility] Comment on above: Performed By: #### H EPATIC, CBC, BMP, LIPASE #### [facility] [address] Globulin (S) [Mass/Vol] 2.9 g/dL Normal F [facility] Comment on above: Performed By: #### H EPATIC, CBC, BMP, LIPASE #### [address] Protein [Mass/Vol] 7.1 g/dL Normal 6.4-8.9 [facility] Comment on above: Performed By: #### H EPATIC, CBC, BMP, LIPASE #### [address] Lipaseon 08-23-2022 Lipase [Catalytic activity/Vol] 10.0 U/L Low 11.0-82.0 [facility] Comment on above: Result Comment: PERF ORMED BY: [place] [address] PATHOLOGIST AUDIO VISUAL COORDINATOR MARYANN CORTEZ M.D. Performed By: #### H EPATIC, CBC, BMP, LIPASE #### [address] Basic Metabolic Panelon 04-0 Anion gap [Moles/Vol] 9.0 mmol/L Normal 6.0-15.0 [facility] Comment on above: Performed By: #### H EPATIC, CBC, BMP, LIPASE #### [address] Calcium [Mass/Vol] 9.1 mg/dL Normal 8.6-10.3 [facility] Comment on above: Performed By: #### H EPATIC, CBC, BMP, LIPASE #### [facility] [address] [place] [address] [place] Chloride [Moles/Vol] 106 mmol/L Normal 98-107 [facility] Comment on above: Performed By: #### H EPATIC, CBC, BMP, LIPASE #### [facility] [address] CO2 [Moles/Vol] 25.7 mmol/L Normal 21.0-31.0 [facility] Comment on above: Performed By: #### H EPATIC, CBC, BMP, LIPASE #### [facility] [address] Creatinine [Mass/Vol] 0.81 mg/dL Normal 0.70-1.30 [facility] Comment on above: Performed By: #### H EPATIC, CBC, BMP, LIPASE #### [facility] [address] Creatinine Clr Calc Pharmacy 146.09 [facility] Comment on above: Result Comment: PERF ORMED BY: [place] [address] PATHOLOGIST AUDIO VISUAL COORDINATOR MARYANN CORTEZ M.D. Performed By: #### H EPATIC, CBC, BMP, LIPASE #### [facility] [address] GFR/1.73 sq M.predicted MDRD (S/P/Bld) [Vol rate/Area] mL/min/{1.73_m2} [facility] Comment on above: Performed By: #### H EPATIC, CBC, BMP, LIPASE #### [facility] [address] Glucose [Mass/Vol] 109 mg/dL High 70-100 [facility] Comment on above: Result Comment: [place]son Glucose Reference Range is dependent on time and content of last meal. Glucose of more than 200 mg/dL in a nonstressed, ambulatory subject supports the diagnosis of Diabetes Mellitus. ADA recommended reference range Performed By: #### H EPATIC, CBC, BMP, LIPASE #### [facility] [address] Potassium [Moles/Vol] 3.7 mmol/L Normal 3.5-5.1 [facility] Comment on above: Performed By: #### H EPATIC, CBC, BMP, LIPASE #### [facility] [address] Sodium [Moles/Vol] 137 mmol/L Normal 136-145 [facility] Comment on above: Performed By: #### H EPATIC, CBC, BMP, LIPASE #### [facility] [address] Urea nitrogen [Mass/Vol] 19 mg/dL Normal 7-25 [facility] Comment on above: Performed By: #### H EPATIC, CBC, BMP, LIPASE #### [facility] [address] Basophils Auto (Bld) [#/Vol] Ordered By: Howie Rodriguez on 07-08-2022 Basophils (Bld) [#/Vol] 0.0 10*3/uL 0.0-0.2 [facility] Basophils/100 WBC Auto (Bld) Ordered By: Howie Rodriguez on 07-08-2022 Basophils/100 WBC (Bld) 0.3 % . [facility] COVID-19 Antigenon 3 COVID-19 Antigen Healthcare Worker?: [...] developed and its performance characteristic determined by [employer] and validated at [facility]. This test has not been [...] for SARS Antigen by KAREN PERFORMED BY: [place] [address] PATHOLOGIST AUDIO VISUAL COORDINATOR MARYANN CORTEZ M.D. [facility] Comment on above: Performed By: #### S OFIANEG, COVID-19 JESSICA #### [address] COVID-19 SOFIAOrdered By: Bolivar Rordiguez on 07-08-2022 SARS-CoV+SARS-CoV-2 (COVID-19) Ag IA.rapid Ql (Resp) Negative Negative [facility] Comment on above: This is a duplicate Jessica SARS Antigen (KAREN) result to be used for statistical tracking purpose only. Calcium [Mass/volume] in Ser um or PlasmaOrdered By: Howie Rodriguez on 07-08-2022 Calcium [Mass/Vol] 9.1 mg/dL 8.6-10.3 [facility] Carbon dioxide, total [Moles /volume] in Serum or PlasmaOrdered By: Howie Rodriguez on 07-08-2022 CO2 [Moles/Vol] 25.7 mmol/L 21.0-31.0 [facility] Chloride [Moles/volume] in S erica or PlasmaOrdered By: Howie Rodriguez on 07-08-2022 Chloride [Moles/Vol] 106 mmol/L 98-107 [facility] Complete Blood Count Auto Di ffon 07-08-2022 Basophils (Bld) [#/Vol] 0.0 10*3/uL Normal 0.0-0.2 [facility] Comment on above: Result Comment: PERF ORMED BY: [place] [address] PATHOLOGIST AUDIO VISUAL COORDINATOR MARYANN CORTEZ M.D. Performed By: #### H EPATIC, CBC, BMP, LIPASE #### [facility] [address] [place] [address] Basophils/100 WBC (Bld) 0.3 % Normal . [facility] Comment on above: Performed By: #### H EPATIC, CBC, BMP, LIPASE #### [facility] [address] [place] [address] Eosinophils (Bld) [#/Vol] 0.1 10*3/uL Normal 0.0-0.45 [facility] Comment on above: Performed By: #### H EPATIC, CBC, BMP, LIPASE #### [facility] [address] [place] [address] Eosinophils/100 WBC (Bld) 2.2 % Normal . [facility] Comment on above: Performed By: #### H EPATIC, CBC, BMP, LIPASE #### [facility] [address] [place] [address] Erythrocyte distribution width (RBC) [Ratio] 13.4 % Normal 12.0-14.8 [facility] Comment on above: Performed By: #### H EPATIC, CBC, BMP, LIPASE #### [facility] [address] [place] [address] Hematocrit (Bld) [Volume fraction] 39.1 % Normal 38.8-50.0 [facility] Comment on above: Performed By: #### H EPATIC, CBC, BMP, LIPASE #### [facility] [address] [place] [address] Hemoglobin (Bld) [Mass/Vol] 13.8 g/dL Normal 13.0-17.0 [facility] Comment on above: Performed By: #### H EPATIC, CBC, BMP, LIPASE #### [address] Lymphocytes (Bld) [#/Vol] 1.1 10*3/uL Normal 1.00-4.8 [facility] Comment on above: Performed By: #### H EPATIC, CBC, BMP, LIPASE #### [address] Lymphocytes/100 WBC (Bld) 21.6 % Normal . [facility] Comment on above: Performed By: #### H EPATIC, CBC, BMP, LIPASE #### [address] MCH (RBC) [Entitic mass] 29.5 pg Normal 27.5-35.2 [facility] Comment on above: Performed By: #### H EPATIC, CBC, BMP, LIPASE #### [address] MCV (RBC) [Entitic vol] 83.5 fL Normal 83.5-101 F [facility] Comment on above: Performed By: #### H EPATIC, CBC, BMP, LIPASE #### [address] Mean Corpuscular HGB Conc 35.4 g/dL Normal 32.5-35.6 [facility] Comment on above: Performed By: #### H EPATIC, CBC, BMP, LIPASE #### [address] Monocytes (Bld) [#/Vol] 0.7 10*3/uL Normal 0.0-0.8 [facility] Comment on above: Performed By: #### H EPATIC, CBC, BMP, LIPASE #### [address] Monocytes/100 WBC (Bld) 20.68 % High 0.00-20.00 [facility] Comment on above: Result Comment: For adults in ED, MDW > 20.0 may be associated with a higher risk of sepsis during the first 12 hrs of hospital admission Performed By: #### H EPATIC, CBC, BMP, LIPASE #### [address] Monocytes/100 WBC (Bld) 12.6 % Normal . [facility] Comment on above: Performed By: #### H EPATIC, CBC, BMP, LIPASE #### [address] Neutrophils (Bld) [#/Vol] 3.3 10*3/uL Normal 1.8-7.7 [facility] Comment on above: Performed By: #### H EPATIC, CBC, BMP, LIPASE #### [address] Neutrophils/100 WBC (Bld) 63.3 % Normal . [facility] Comment on above: Performed By: #### H EPATIC, CBC, BMP, LIPASE #### [address] NRBC% 0.1 /100{WBC} Normal 0-0.5 [facility] Comment on above: Performed By: #### H EPATIC, CBC, BMP, LIPASE #### [address] Platelet mean volume (Bld) [Entitic vol] 8.1 fL Normal 6.6-10.1 [facility] Comment on above: Performed By: #### H EPATIC, CBC, BMP, LIPASE #### [place] [address] [place] Platelets (Bld) [#/Vol] 209 10*3/uL Normal 150-450 [facility] Comment on above: Performed By: #### H EPATIC, CBC, BMP, LIPASE #### [address] RBC (Bld) [#/Vol] 4.68 10*6/uL Normal 3.90-5.60 [facility] Comment on above: Performed By: #### H EPATIC, CBC, BMP, LIPASE #### [address] [place] [address] [place] WBC (Bld) [#/Vol] 5.3 10*3/uL Normal 4.1-10.5 [facility] Comment on above: Performed By: #### H EPATIC, CBC, BMP, LIPASE #### [facility] [address] Creatinine [Mass/volume] in Serum or PlasmaOrdered By: Howie Rodriguez on 07-08-2022 Creatinine [Mass/Vol] 0.81 mg/dL 0.70-1.30 [facility] Eosinophils Auto (Bld) [#/Vo l]Ordered By: Howie Rodriguez on 07-08-2022 Eosinophils (Bld) [#/Vol] 0.1 10*3/uL 0.0-0.45 [facility] Eosinophils/100 WBC Auto (Bl d)Ordered By: Howie Rodriguez on 07-08-2022 Eosinophils/100 WBC (Bld) 2.2 % . [facility] Erythrocyte distribution wid th Auto (RBC) [Ratio]Ordered By: Howie Rodriguez on 07-08-2022 Erythrocyte distribution width (RBC) [Ratio] 13.4 % 12.0-14.8 [facility] Glucose [Mass/volume] in Ser um or PlasmaOrdered By: Howie Rodriguez on 07-08-2022 Glucose [Mass/Vol] 109 mg/dL 70-100 [facility] Comment on above: ADA recommended refe rence rangeRandom Glucose Reference Range is dependent on time and content of last meal. Glucose of more than 200 mg/dL in a nonstressed, ambulatory subject supports the diagnosis of Diabetes Mellitus. Hematocrit Auto (Bld) [Volum e fraction]Ordered By: Howie Rodriguez on 07-08-2022 Hematocrit (Bld) [Volume fraction] 39.1 % 38.8-50.0 [facility] Hemoglobin [Mass/volume] in BloodOrdered By: Howie Rodriguez on 07-08-2022 Hemoglobin (Bld) [Mass/Vol] 13.8 g/dL 13.0-17.0 [facility] Leukocytes [#/volume] correc jolene for nucleated erythrocytes in Blood by Automated counOrdered By: Howie Rodriguez on 07-08-2022 WBC corrected for nucl RBC Auto (Bld) [#/Vol] 5.3 10*3/uL 4.1-10.5 [facility] Lymphocytes Auto (Bld) [#/Vo l]Ordered By: Howie Rodriguez on 07-08-2022 Lymphocytes (Bld) [#/Vol] 1.1 10*3/uL 1.00-4.8 [facility] Lymphocytes/100 WBC Auto (Bl d)Ordered By: Howie Rodriguez on 07-08-2022 Lymphocytes/100 WBC (Bld) 21.6 % . [facility] MCH Auto (RBC) [Entitic mass ]Ordered By: Howie Rodriguez on 07-08-2022 MCH (RBC) [Entitic mass] 29.5 pg 27.5-35.2 [facility] MCHC Auto (RBC) [Mass/Vol]Or dered By: Howie Rodriguez on 07-08-2022 MCHC (RBC) [Mass/Vol] 35.4 g/dL 32.5-35.6 [facility] MCV Auto (RBC) [Entitic vol] Ordered By: Howie Rodriguez on 07-08-2022 MCV (RBC) [Entitic vol] 83.5 fL 83.5-101 [facility] Monocyte distribution width [Entitic volume] in Blood by AutomatedOrdered By: Howie Rodriguez on 07-08-2022 Monocyte distribution width Auto (Bld) [Entitic vol] 20.68 % 0.00-20.00 [facility] Comment on above: For adults in ED, MD W > 20.0 may be associated with a higher risk of sepsis during the first 12 hrs of hospital admission Monocytes Auto (Bld) [#/Vol] Ordered By: Howie Rodriguez on 07-08-2022 Monocytes (Bld) [#/Vol] 0.7 10*3/uL 0.0-0.8 [facility] Monocytes/100 WBC Auto (Bld) Ordered By: Howie Rodriguez on 07-08-2022 Monocytes/100 WBC (Bld) 12.6 % . [facility] Neutrophils Auto (Bld) [#/Vo l]Ordered By: Howie Rodriguez on 07-08-2022 Neutrophils (Bld) [#/Vol] 3.3 10*3/uL 1.8-7.7 [facility] Neutrophils/100 WBC Auto (Bl d)Ordered By: Howie Rodriguez on 07-08-2022 Neutrophils/100 WBC (Bld) 63.3 % . [facility] No Panel InformationOrdered By: Howie Rodriguez on 07-08-2022 SARS Antigen (LFIA) [facility] Estimated GFR (CKD-EPI) > 60.0 mL/Min [facility] Creatinine Clearance (Chem 146.09 [facility] Nucleated erythrocytes [Pres ence] in Blood by Automated countOrdered By: Howie Rodriguez on 07-08-2022 Nucleated RBC Auto Ql (Bld) 0.1 /100{WBC} 0-0.5 [facility] Platelet mean volume Auto (B ld) [Entitic vol]Ordered By: Howie Rodriguez on 07-08-2022 Platelet mean volume (Bld) [Entitic vol] 8.1 fL 6.6-10.1 [facility] Platelets Auto (Bld) [#/Vol] Ordered By: Howie Rodriguez on 07-08-2022 Platelets (Bld) [#/Vol] 209 10*3/uL 150-450 [facility] Potassium [Moles/volume] in Serum or PlasmaOrdered By: Howie Rodriguez on 07-08-2022 Potassium [Moles/Vol] 3.7 mmol/L 3.5-5.1 [facility] RBC Auto (Bld) [#/Vol]Ordere d By: Howie Rodriguez on 07-08-2022 RBC (Bld) [#/Vol] 4.68 10*6/uL 3.90-5.60 [facility] Serum or plasma anion gap de terminationOrdered By: Howie Rodriguez on 07-08-2022 Anion gap [Moles/Vol] 9.0 mmol/L 6.0-15.0 [facility] Sodium [Moles/volume] in Ser um or PlasmaOrdered By: Howie Rodriguez on 07-08-2022 Sodium [Moles/Vol] 137 mmol/L 136-145 [facility] Jessica Ag Negativeon 07-09-19 23 Jessica Ag Negative Negative Normal Negative [facility] Comment on above: Result Comment: This is a duplicate Jessica SARS Antigen (KAREN) result to be used for statistical tracking purpose only. PERFORMED BY: [facility] [address] [place] [address] PATHOLOGIST AUDIO VISUAL COORDINATOR MARYANN CORTEZ M.D. Performed By: #### S OFKEYA, COVID-19 JESSICA #### [facility] [address] Urea nitrogen [Mass/volume] in Serum or PlasmaOrdered By: Howie Rodriguez on 07-08-2022 Urea nitrogen [Mass/Vol] 19 mg/dL 7-25 [facility] WBC Auto (Bld) [#/Vol]Ordere d By: Howie Rodriguez on 07-08-2022 WBC (Bld) [#/Vol] 5.3 10*3/uL 4.1-10.5 [facility] Coding Summary.on 03-07-2019 Coding Summary. CODING DATE: 03/07/2019 [facility] STATUS: Home (Routine DC) PAYOR: [facility] [employer] DESCRIPTION 5521 Level 1 Imaging without [...] Jewell Date Saved: 03/07/2019 12:52 pm Normal [facility] ED Clinical Summaryon 2018 ED Clinical Summary [place] [id number] ED Clinical Summary Person Information Name: MARILYN REDDY/Sona Age: 18 Years : 2000 12:00 AM Sex: Male Language: Hungarian PCP: TOI MACHADO MD Marital Status: Single [...] 03/05/2019 3:49 PM 03/05/2019 3:49 PM ADDRESS: [id number] [place] [id number] PHYS DOC NOTES: MEDICAL INFORMATION: Prescriptions Given: PATIENT EDUCATION INFORMATION: Instructions: Ankle Sprain Follow up: With: Address: When: [place] [address] [facility] (1) In 3 days 03/08/2019 DIAGNOSIS: Ankle sprain Normal [facility] ED Note-Physicianon 03-05-20 ED Note-Physician Basic Information Time Seen: Humberto Albrecht PA-C 03/05/2019 14:23 Chief Complaint Left ankle pain. [place] ankle. [...] Information Halley Arlene In 3 days 03/08/2019 [facility] [employer] [place] [id number] [facility] (1) Additional Instructions: Patient Education Ankle Sprain Attestation Patient seen and evaluated by the physician desk assistant. Attending physician was present in the emergency department and supervised care. This report was transcribed using voice recognition software. Every effort was made to ensure accuracy, however, inadvertently computerized bootmaker mistakes may be present. Problem List/Past Medical [...] abnormality. Signed By: Fe BALBUENA, Tomas Alvarez [facility] Comment on above: Result Comment: Elec [...] while you are awake. ? Only take wnug-apn-feezmin or prescription medicines for pain, discomfort, or [...] Document Reviewed: 03/31/2012 ExitCare? Patient Information ?2015 [employer]. This information is not intended to replace advice given to you by your health care provider. Make sure you discuss any questions you have with your health care provider. Normal [facility] ED Patient Summaryon 019 ED Patient Summary [address] [address] Patient Discharge Instructions Person Information Name: MARILYN REDDY Age: 18 Years Arrival Date: 03/05/2019 1:31 PM Discharge Diagnosis: Ankle sprain Primary Care Physician: TOI MACHADO MD Provider Information Primary Provider: Sonia Shah MD [employer] Mediator:Humberto Albrecht PA-C The exam and treatment you received in the Emergency Department were for an urgent problem and are not intended as complete care. It is important that you follow up with a doctor, nurse practitioner, or physician?s desk assistant for ongoing care. If your symptoms [...] With: Address: When: [address] [place] [address] Business (1) In 3 days 03/08/2019 In the event that this physician does not participate in your insurance network, please consult with your insurance company to find a nearby participating provider. Patient Education Materials: Ankle Sprain A MESSAGE TO ALL PATIENTS REGARDING OPIOIDS PRESCRIPTION OPIOIDS: WHAT YOU NEED TO KNOW Prescription opioids can be used to help relieve vomoegwt-ev-gvycwp pain and are often prescribed following a [...] be struggling with addiction, tell your health manager home healthcare and ask for guidance or call SAMHSA?S National Helpline at 5-508-436-WXUR. l Source: [place] Department of Health and Human Services/Center for Disease Control & Prevention [facility] Medications Given: Medication Dose Route No medications found. Medication Information: Comment: Pharmacy Information: [facility] Kavita Katie Thank you for choosing [facility] Patient Education Materials: Ankle Sprain An ankle [...] while you are awake. ? Only take grgn-axq-ppypbqc or prescription medicines for pain, discomfort, or [...] Document Reviewed: 03/31/2012 ExitCare? Patient Information ?2015 [employer]. This information is not intended to replace advice given to you by your health care provider. Make sure you discuss any questions you have with your health care provider. BARRY Patel LEE , have received the following patient education materials/instructi ons and have verbalized understanding: Patient Education Materials: Ankle Sprain Follow-up Instructions: With: Address: When: [address] [place] [address] Business (1) In 3 days 03/08/2019 Prescriptions: Patient Signature Date Clinician/Nurse Signature Date 03/05/19 15:49:13 [facility] XR Ankle 3+ Views Lefton XR [...] Miramontes MD Transcribed by: EZEKIEL Technologist: ARACELIS [facility] Vital Signs Date Time Vital Sign Value Performing Clinician Gabi honeycutt 07-08-2022 11:05-0400 Diastolic blood pressure 72 mm[Hg] WAITER/WAITRESS TAKE OUT-BC Janell Bullimore Work Phone: [facility] 07-08-2022 11:05-0400 Heart rate 47 /min WAITER/WAITRESS TAKE OUT-BC Janell Bullimore Work Phone: [facility] 07-08-2022 11:05-0400 Respiratory rate 18 /min WAITER/WAITRESS TAKE OUT-BC Janell Bullimore Work Phone: [facility] 07-08-2022 11:05-0400 SaO2% (BldA) [Mass fraction] 100 % WAITER/WAITRESS TAKE OUT-BC Janell Bullimore Work Phone: [facility] 07-08-2022 11:05-0400 Systolic blood pressure 116 mm[Hg] WAITER/WAITRESS TAKE OUT-BC Janell Bullimore Work Phone: [facility] 07-08-2022 07:25-0400 Body height 182.88 cm WAITER/WAITRESS TAKE OUT-BC Janell Bullimore Work Phone: [facility] 07-08-2022 07:25-0400 Body temperature 97.8 [degF] WAITER/WAITRESS TAKE OUT-BC Janell Bullimore Work Phone: [facility] 07-08-2022 07:25-0400 Body weight 71 kg WAITER/WAITRESS TAKE OUT-BC Janell Bullimore Work Phone: [facility] 05-05-2022 20:25-0500 Body height 182.88 cm WAITER/WAITRESS TAKE OUT-BC Janell Bullimore Work Phone: [facility] 05-05-2022 20:25-0500 Body temperature 97.9 [degF] WAITER/WAITRESS TAKE OUT-BC Janell Bullimore Work Phone: [facility] 05-05-2022 20:25-0500 Body weight 73.15 kg WAITER/WAITRESS TAKE OUT-BC Janell Bullimore Work Phone: [facility] 05-05-2022 20:25-0500 Diastolic blood pressure 63 mm[Hg] WAITER/WAITRESS TAKE OUT-BC Janell Bullimore Work Phone: [facility] 05-05-2022 20:25-0500 Heart rate 72 /min WAITER/WAITRESS TAKE OUT-BC Janell Bullimore Work Phone: [facility] 05-05-2022 20:25-0500 Respiratory rate 16 /min WAITER/WAITRESS TAKE OUT-BC Janell Bullimore Work Phone: [facility] 05-05-2022 20:25-0500 SaO2% (BldA) [Mass fraction] 99 % WAITER/WAITRESS TAKE OUT-BC Janell Bullimore Work Phone: [facility] 05-05-2022 20:25-0500 Systolic blood pressure 135 mm[Hg] WAITER/WAITRESS TAKE OUT-BC Janell Bullimore Work Phone: [facility] 04-20-2022 10:09-0500 Body height 182.88 cm WAITER/WAITRESS TAKE OUT-BC Janell Bullimore Work Phone: [facility] 04-20-2022 10:09-0500 Body temperature 98.1 [degF] WAITER/WAITRESS TAKE OUT-BC Janell Bullimore Work Phone: [facility] 04-20-2022 10:09-0500 Body weight 72.25 kg WAITER/WAITRESS TAKE OUT-BC Janell Bullimore Work Phone: [facility] 04-20-2022 10:09-0500 Diastolic blood pressure 77 mm[Hg] WAITER/WAITRESS TAKE OUT-BC Janell Bullimore Work Phone: [facility] 04-20-2022 10:09-0500 Heart rate 70 /min WAITER/WAITRESS TAKE OUT-BC Janell Bullimore Work Phone: [facility] 04-20-2022 10:09-0500 Respiratory rate 16 /min WAITER/WAITRESS TAKE OUT-BC Janell Bullimore Work Phone: [facility] 04-20-2022 10:09-0500 SaO2% (BldA) [Mass fraction] 99 % WAITER/WAITRESS TAKE OUT-BC Janell Bullimore Work Phone: [facility] 04-20-2022 10:09-0500 Systolic blood pressure 129 mm[Hg] WAITER/WAITRESS TAKE OUT-BC Janell Bullimore Work Phone: [facility] Encounters Encounter Date Encounter Type Care Provider Facility Start: 08-25-2022 End: 08-25-2022 Emergency department patient visit Subhash Mojica Facility:[facility] Start: 08-23-2022 End: 08-23-2022 Emergency department patient visit PHYSICIAN COLLIN HADDAD Facility:[facility] Start: 07-08-2022 End: 07-08-2022 Emergency department patient visit Howie Marcello Rodriguez Facility:[facility] Start: 07-08-2022 End: 07-08-2022 Emergency department patient visit WAITER/WAITRESS TAKE OUT-BC Janell Bullimore Work Phone: [facility] Work Phone: Start: 05-05-2022 End: 05-05-2022 Emergency department patient visit Tati Hale Facility:[facility] Start: 05-05-2022 End: 05-05-2022 Emergency department patient visit WAITER/WAITRESS TAKE OUT-BC Janell Bullimore Work Phone: [facility]-Emergency Room Work Phone: Start: 04-20-2022 End: 04-20-2022 Emergency department patient visit Janell Norris Facility:[facility] Start: 04-20-2022 End: 04-20-2022 Emergency department patient visit WAITER/WAITRESS TAKE OUT-BC Janell Bullimore Work Phone: [facility]-Emergency Room Work Phone: Start: 06-17-2021 End: 06-17-[address] TOI MACHADO Facility:[facility] Procedures Date Procedure Procedure Detail Performing Clinician Start: 07-08-2022 SARS Antigen (LFIA) WAITER/WAITRESS TAKE OUT - Janell Bullimore Work Phone: Plan of Treatment Date Care Activity Detail Author Patient Education [facility] Work Phone: Patient referral [facility] Work Phone: Immunizations Immunization Date Immunization Notes Care Provider Fa cility NEGATED: Highlighted row has not occurred!04-20-2022 tetanus toxoid, reduced diphtheria toxoid, and acellular pertussis vaccine, adsorbed [facility]- Janell Bullimore Work Phone: [facility] Payers Date Payer Category Payer Self-pay 2000 Unknown [id number] 1958 Self-pay [id number] Medicaid [facility] 106 [id number] Unknown [id number] Unknown [id number] Unknown [id number] Unknown [id number] Unknown [id number] Social History Date Type Detail Facility Start: 04-20-2022 End: 05-05-2022 Tobacco smoking status [place] Never smoked tobacco (finding) [facility] Start: 2000 Sex Assigned At Male F [facility] Start: 07-08-2022 Tobacco smoking stat us [place] Smoker (finding) [facility] Hospital Discharge instructions 05-05-2022 Note Date & Type Note Facility 05-05-2022 Hospital Discharg e instructions Additional Instructions Keep wound clean and dry Observe for signs of infection Follow with your doctor for recheck in 3 to 5 days Return here if any pus persist or worsen [facility] Work Phone: Hospital Discharge instructions 04-20-2022 Note Date & Type Note Facility 04-20-2022 Hospital Discharg e instructions Additional Instructions Manpreet can be removed in 10 days Keep it clean and dry wash with soap and water do not use peroxide or alcohol Apply antibiotic ointment 2-3 times a day May apply ice to the sore area May take [id number] Tylenol or ibuprofen as needed for discomfort Return to the ER if severe headache vomiting confusion dizziness uncontrolled bleeding or any other concerns [facility] Work Phone: Evaluation note Note Date & Type Note Facility Evaluation note No assessment information availa ble [facility] Work Phone: Summary Purpose Family History No [...] and content) DATE CREATED AUTHOR 11/08/2019 [facility] DATE CREATED AUTHOR AUTHOR'S ORGANIZ ATION 06/21/2021 [facility] DATE CREATED AUTHOR AUTHOR'S ORGANIZ ATION 09/10/2022 [facility] Care Teams (unrecognized sec tion and content) [...] BE BASED ON THE PRIMARY CLINICAL RECORDS. [facility] provides no warranty or guarantee of the accuracy or completeness of information in this document.
[2024-05-19 16:20] LABS: Basophils Percent Auto 0.2 % (0.2-2.0); Eosinophils Percent Auto 0.4 % (0.9-7.0); Hematocrit 40.1 % (42.0-54.0); Hemoglobin 14.4 g/dL (14.0-18.0); Immature Granulocytes Abs Auto 0.01 10^3/uL (0.00-0.03); Immature Granulocytes Pct Auto 0.2 % (0.0-0.5); Lymphocytes Absolute Auto 0.7 10^3/uL (1.2-3.8); Lymphocytes Percent Auto 13.8 % (20.5-60.0); Mean Corpuscular HGB Conc 35.9 g/dL (29.9-35.2); Mean Corpuscular Volume 83.5 fL (80.0-94.0); Mean Platelet Volume 9.5 fL (9.5-13.5); Monocytes Absolute Auto 0.6 10^3/uL (0.3-0.8); Monocytes Percent Auto 12.1 % (1.7-12.0); Neutrophils Absolute Auto 3.8 10^3/uL (1.4-6.5); Neutrophils Percent Auto 73.3 % (43.0-75.0); Platelet Count 183 10^3/uL (150-450); Red Cell Distribution Width 11.7 % (11.0-15.0); White Blood Count 5.1 10^3/uL (4.0-11.0)
[2024-05-19 16:33] LABS: D Dimer 0.34 mg/L FEU (<=0.59)
--- NOTE | 2024-05-19 16:42 | XR_ITS ---
[place] [id number] Patient Name: MARILYN REDDY MRN: [id number] date: 2000 Sex: M Assigned Patient Location: ER Current Patient Location: ED.MAIN Accession/Order Number: [id number] Exam Date: 05/19/2024 16:45 Report Date: 05/19/2024 17:39 At the request of: CAMMIE JOE Procedure: XR chest 1V EXAM: XR chest 1V HISTORY: Cough COMPARISON: 06/19/2020 TECHNIQUE: AP upright chest x-ray. FINDINGS: Lungs clear and unchanged without new density. Normal heart size and mediastinal contour. No pleural effusion or pneumothorax. XR/XR chest 1V IMPRESSION: Stable chest x-ray, no acute findings. Clear lungs. Electronically authenticated by: PRECIOUS MCNULTY Date: 05/19/2024 17:39
[2024-05-19 16:44] LABS: Alanine Aminotransferase 23 U/L (16-63); Albumin Level 3.7 g/dL (3.4-5.0); Alkaline Phosphatase 73 U/L (46-116); Aspartate Amino Transferase 26 U/L (15-37); Bilirubin Total 0.7 mg/dL (0.2-1.0); Calcium 8.7 mg/dL (8.5-10.1); Carbon Dioxide 25.3 mmol/L (21.0-32.0); Chloride 100 mmol/L (98-107); Estimated GFR (African America >60 (>=60 mL/min/1.73m^2); Estimated GFR (Non-African Ame >60 (>=60 mL/min/1.73m^2); Globulin 3.6 g/dL; Glucose 100 mg/dL (74-106); Potassium 3.3 mmol/L (3.5-5.1); Sodium 135 mmol/L (136-145); Total Protein 7.3 g/dL (6.4-8.2)
[2024-05-19 16:47] LABS: Troponin I High Sensitivity 9.5 pg/mL (4.0-76.1)
[2024-05-19] MEDS: POTASSIUM CHLORIDE 10 MEQ ER TABLET 40 MEQ PO (17:21)
== END 2024-05-19 17:23 | disposition home or self-care (01) ==
PROVIDERS: Physician Assistant; Emergency Provider Emergency Medicine; PCP Family Medicine
DX: R07.89 Other chest pain (principal); R09.1 Pleurisy; F17.200 Nicotine dependence, unspecified, uncomplicated
CPT/HCPCS: 36415; 71045; 80053; 84484; 85025; 85378; 93005; 96374; 96375; 99285; J1885; J2919